=== PATIENT | male | born 1960 | race Caucasian/White ===

== ENCOUNTER 2024-12-12 11:39 | Inpatient (IN) | payer MEDICARE, SELFPAY ==
[2024-12-12] VITALS (8 sets, daily range): BP systolic 105–154; BP diastolic 64–105; PULSE 87–120; RESP 12–88; TEMP 35.6–37.2; O2SAT 95–100; BMI 20.6; BMI 19.7
--- NOTE | 2024-12-12 11:43 | EKG_ITS ---
[facility] Test Date: 2024-12-12 Pat Name: MAUREEN CAPUTO Department: Room: - Gender: Male Communications Senior Associate: : 1960 Requested By: Zora Almanza Order Number: [id number] Reading MD: Zora Almanza Measurements Intervals [place] Rate: 111 P: 46 HI: 153 QRS: 36 QRSD: 87 T: 32 QT: 310 QTc: 423 Interpretive Statements SINUS TACHYCARDIA LOW QRS VOLTAGE IN EXTREMITY LEADS [QRS DEFLECTION < 0.5 mV IN LIMB LEADS] NONSPECIFIC ST & T-WAVE ABNORMALITY ABNORMAL RHYTHM ECG No previous ECG available for comparison /store/S0/[id number].pdf
--- NOTE | 2024-12-12 11:44 | PD.EDSOB ---
ED SOB =RME/HPI General Chief Complaint: Shortness of Breath/Dyspnea Stated Complaint: STAT Time Seen by Provider: 12/12/24 11:43 Arrival date/time: 12/12/24 11:39 RME / HPI RME / HPI Narrative: 64 year old male with history of breast cancer with metastasis to brain and bones, undergoing chemotherapy, BPH with LUTS, s/p prostatic uretheral lift presents to the ED BIBA from home for altered mental status today. Per medics, on scene reported the patient at baseline is GCS of 14, conversive, awake, alert. However, noted at about 10:45 AM today the patient was not responsive. Was last known well at 10:30 AM today. Per medics, on scene patient is minimally responsive to pain, GCS of 4, prehospital BS 155, HR 120s. Related Data Home Medications ?Medication ?Instructions ?Recorded ?Confirmed Benazepril Hcl ##0 04/25/15 10/31/21 Cyclobenzaprine * (FLEXERIL *) 5 mg PO TID #0 tabs 04/25/15 10/31/21 Hydrocodone/Acetaminophen * (NORCO 1 tab PO Q4H PRN #0 tabs 04/25/15 10/31/21 10/325 *) hydrochlorothiazide 12.5 mg 12.5 mg PO QAM High Blood Pressure 04/25/15 10/31/21 capsule (Microzide) #0 caps topiramate 50 mg tablet (Topamax) 50 mg PO QDAY #0 tabs 02/22/17 10/31/21 tamoxifen 20 mg tablet 20 mg PO QDAY 12/18/19 10/31/21 pregabalin 25 mg capsule (Lyrica) 25 mg PO BID 11/08/20 10/31/21 Allergies Allergy/AdvReac Type Severity Reaction Status Date / Time No Known Allergies Allergy Verified 12/12/24 14:15 Review of Systems Review of Systems ROS Unobtainable: unobtainable due to mental status Past Medical History Past Medical History REPRODUCTIVE: Positive Breast Cancer OTHER HISTORY: Positive Chemotherapy and Breast Cancer Social History SMOKING STATUS: Unknown if ever smoked ED Exam Narrative Physical exam: Constitutional: Altered, lethargic HEENT: NC, AT, pupils are 5mm and reactive bilaterally Neck: Supple CV: RRR, no m/r/g Lungs: spontaneous respirations, CTAB, no w/r/r, no respiratory distress. Abd: Soft, NT, no HSM noted to palpation Extremities: No deformities, no edema noted Neuro: Altered, lethargic, appears to move upper extremities spontaneously Skin: Warm, dry, intact Course Course Course Narrative: 1300h: On chest xray, there is significant pneumonia, antibiotics ordered, patient will most likely be admitted. 1430h: The at bedside reports that the patient has had a low-grade fever for the past few days, along with decreased activity, which worsened this morning. The patient has pneumonia on CXR and a brain CT showed no acute findings. Known history of metastatic breast cancer to the bones and brain. Given the change in mentation, likely delirium with the PNA. Abx were given and plan admit. 1515h: I spoke with hospitalist team B regarding admission. Quality Measures none Orders Category Date Time Status Bedside COVID-19 Antigen Test NOW Care 12/12/24 15:20 Active COVID-19 Screening Questionnaire NOW Care 12/12/24 15:13 Active Sales Product Specialist STAT Care 12/12/24 11:43 Active Continuous Pulse Oximetry STAT Care 12/12/24 11:43 Completed Decision to Admit X1 Care 12/12/24 15:13 Completed EKG (ED ONLY) *Do not use* NOW Care 12/12/24 11:43 Completed In and Out Catheter X1PRN Care 12/12/24 11:43 Completed Insert IV NOW Care 12/12/24 11:43 Active NPO STAT Care 12/12/24 11:43 Active Strict Intake and Output Routine Care 12/12/24 11:[address] head/brain wo con Stat Exams 12/12/24 11:43 Completed EKG (ED Only) Stat Exams 12/12/24 11:43 Draft XR chest 1V SEPSIS PROTOCOL Stat Exams 12/12/24 11:45 Completed ABG [Arterial Blood Gas] Stat Lab 12/12/24 15:50 Completed Ammonia Stat Lab 12/12/24 13:18 Completed B-Type Natriuretic Peptide Stat Lab 12/12/24 11:53 Completed Blood Culture (Lab) Stat Lab 12/12/24 13:18 Received CBC Stat Lab 12/12/24 11:53 Completed Comprehensive Metabolic Panel Stat Lab 12/12/24 13:18 Completed Drug Screen,Urine Stat Lab 12/12/24 11:55 Completed Influenza A & B Rapid Panel Stat Lab 12/12/24 15:27 Completed LDH (Lactate Dehydrogenase) Stat Lab 12/12/24 13:18 Completed Lactate (Lactic Acid) Stat Lab 12/12/24 11:53 Completed Lipase Stat Lab 12/12/24 13:18 Completed Magnesium Stat Lab 12/12/24 13:18 Completed Partial Thromboplastin Time Stat Lab 12/12/24 13:18 Completed Phosphorous Stat Lab 12/12/24 13:18 Completed Procalcitonin Stat Lab 12/12/24 13:18 Completed Prothrombin Time with INR Stat Lab 12/12/24 13:18 Completed Urinalysis, C/S if Indicated Stat Lab 12/12/24 11:50 Completed Azithromycin Inj [Zithromax Inj] 500 mg Med 12/12/24 13:02 Discontinued Sodium Chloride 0.9% 250 ml [Ns] 250 ml IV X1 Ringers Lactated 1000 ml [Lactated Ringers] 1,000 ml Med 12/12/24 13:03 Discontinued IV 500 mls/hr Ringers Lactated 1000 ml [Lactated Ringers] 1,000 ml Med 12/12/24 11:47 Discontinued IV 999 mls/hr cefTRIAXone/D5w 1gm IV premix [Rocephin/D5w 1gm IV Med 12/12/24 13:02 Discontinued premix] 1 gm in 50 ml IV X1 Oxygen Delivery NOW RT 12/12/24 11:43 Active Vital Signs Vital signs: Vital Signs Temperature 98.9 F 12/12/24 11:40 Pulse Rate 117 H 12/12/24 11:40 Respiratory Rate 18 12/12/24 11:40 Blood Pressure 105/64 12/12/24 11:40 Pulse Oximetry (%) 98 12/12/24 11:40 Oxygen Delivery Method Oxy Mask 12/12/24 11:40 Oxygen Flow Rate 4 12/12/24 11:40 Shortness of Breath / Dyspnea MDM Narrative MDM Narrative:: Dalila Lopez am scribing for and in the presence of Dr. Koehler. Patient data External records reviewed:: [facility] previous records and EMS form Clinical information provided by:: EMS Social determinants that could affect healthcare access:: none Patient has the following chronic illnesses:: breast cancer with metastasis to brain and bones, undergoing chemotherapy, BPH with LUTS, s/p prostatic uretheral lift How is presenting disease/condition affected by chronic disease/condition?: exacerbated by Evaluation data The following diagnostics were reviewed and interpreted by me:: lab results, radiology exam(s) and EKG tracing(s) (EKG @ 11:49 AM. Sinus tachycardia, rate 111, no acute ischemic changes, no STEMI. ) Lab and/or radiology exams considered but not ordered:: None Interpretation Summary: Ordering Physician: Zora Koehler MD Date of Service: 12/12/24 Procedure(s): CT head/brain wo con Accession Number(s): [id number] cc: James Jay MD; Zora Koehler MD~ Examination: CT brain head without contrast. 2-D sagittal coronal reconstructions Date and time of exam:December 12, 2024, 1205 hours INDICATIONS: Altered mental status today CTDI: vol (mGy):48 DLP: (mGycm):1054 Technique: Multiple CT axial sections of the brain have been obtained, 5 mm slice thickness. Contrast has not been administered. 2-D sagittal, coronal reconstructions have been obtained Low dose protocols were performed. One or more of the following dose reduction techniques were used; automated exposure control, adjustment of the mA and/or KV according to patient size, use of iterative reconstruction technique. Findings: No significant ventricular enlargement. Intra-axial or extra-axial hemorrhage density is not seen. No mass effect or midline shift Basal cisterns are not remarkable. Fourth ventricle is midline. Cranial vault intact. Acute right mastoiditis Right otitis media Impression: Negative for acute hemorrhage, mass effect or midline shift Acute right mastoiditis Right otitis media Advise clinical correlation follow-up accordingly Dictated By: James Jay MD Signed By: <Electronically signed by James Jay MD in OV> 12/12/24 1243 Ordering Physician: Zora Koehler MD Date of Service: 12/12/24 Procedure(s): XR chest 1V SEPSIS PROTOCOL Accession Number(s): [id number] cc: James Jay MD; Zora Koehler MD~ Examination: AP chest single view Technique one AP portable upright chest single view Date and time: December 12, 2024, 11:54 AM INDICATIONS: Sepsis alert today. FINDINGS: Fairly diffuse right lung pneumonia Left base pneumonia Mild elevation left hemidiaphragm. Left internal Port-A-Cath tip right atrium Normal heart size Prominent osteopenia with old appearing fracture deformity left humeral neck IMPRESSION: Significant bilateral pneumonia Dictated By: James Jay MD Signed By: <Electronically signed by James Jay MD in OV> 12/12/24 1204 Medications / Prescriptions Medications or Prescriptions considered but not ordered:: None Medication administrations:: Medication Administration History Acetaminophen (Acetaminophen 325 Mg Tablet) 650 mg PO Q6H PRN PRN Reason: Fever >101.5 and pain 1-3 Stop: 01/11/25 16:21 Hydrocodone Bitart/Acetaminophen (Hydrocodone/Apap 10/325 Tab) 1 tab PO Q4H PRN PRN Reason: PAIN SCALE 4-6 (Moderate Stop: 12/17/24 16:21 Lactated Ringer's (Lactated Ringers) 1,000 mls @ 75 mls/hr IV .[id number] ONE Stop: 12/13/24 06:41 Morphine Sulfate (Morphine Sulf Inj 4 Mg/Ml Vial) 2.5 mg IVP Q6H DEBBI Stop: 12/13/24 08:01 Ondansetron HCl (Ondansetron Inj 2 Mg/Ml Inj 2 Ml) 4 mg IVP Q6H PRN; Protocol PRN Reason: NAUSEA OR VOMITING Stop: 01/11/25 16:21 Discontinued Medications Lactated Ringer's (Lactated Ringers) 1,000 mls @ 999 mls/hr IV .Q1H1M ONE Stop: 12/12/24 12:47 Last Infusion: 12/12/24 14:07 Dose: Infused Documented By: Admin: 12/12/24 12:35 Dose: 999 mls/hr Documented By: VG Ceftriaxone Sodium/Dextrose (Rocephin/D5w 1gm Iv Premix) 1 gm in 50 mls @ 100 mls/hr IV X1 ONE Stop: 12/12/24 13:31 Last Infusion: 12/12/24 15:03 Dose: Infused Documented By: Admin: 12/12/24 14:22 Dose: 100 mls/hr Documented By: DIANNE Azithromycin 500 mg/ Sodium (Chloride) 250 mls @ 250 mls/hr IV X1 ONE Stop: 12/12/24 14:01 Last Infusion: 12/12/24 15:51 Dose: Infused Documented By: Admin: 12/12/24 14:33 Dose: 250 mls/hr Documented By: DIANNE Lactated Ringer's (Lactated Ringers) 1,000 mls @ 500 mls/hr IV .Q2H ONE Stop: 12/12/24 15:02 Last Admin: 12/12/24 14:06 Dose: 500 mls/hr Documented By: DIANNE See above Consultations Consultation(s) initiated? (list below): Yes Consultation #1 (Physician, Specialty, Details): See course Diagnosis Shortness of Breath Differential Diagnosis: acute exacerbation of chronic obstructive airways disease, congestive heart failure, community acquired pneumonia and asthma with exacerbation Most likely diagnosis given after review of the tests above:: Altered mental status Pneumonia Admission Indicated Admission indicated?: indicated Admission Request Was there a request for admission?: Yes Admission Attestation Admission request attestation: Discussed case with [] from Hospitalist service regarding admission. Discussed patients ED course, exam findings, labs, and radiology results. The Hospitalist [agrees,declines] to accept the patient for admission. Disposition Plan Disposition Plan: Admit Discharge Plan Plan Patient Disposition: Admit Acute Care w/in Hospital Problem List Clinical Impression: Altered mental status, Pneumonia
--- NOTE | 2024-12-12 12:00 | PC.NURSE ---
PT TAKEN TO CT.
[2024-12-12 12:17] LABS: Collection Type, Urine Clean Catch
[2024-12-12 12:18] LABS: Basophils # (Auto) 0.1 Thou/mm3 (0.0-0.2); Basophils % (Auto) 1 % (0-2.5); Eosinophils # (Auto) 0.1 Thou/mm3 (0.0-0.5); Eosinophils % (Auto) 1 % (0-10); Hematocrit 36.6 % (41.0-53.0); Hemoglobin 11.7 g/dL (13.5-16.0); Immature Granulocytes Auto 0.13 Thou/mm3 (0.00-0.00); Lactate (Lactic Acid) 1.2 mMol/L (0.4-2.0); Lymphocytes # (Auto) 0.6 Thou/mm3 (1.0-4.8); Lymphocytes % (Auto) 6 % (10-50); Mean Corpuscular HGB Conc 32.0 g/dl (31.0-37.0); Mean Corpuscular Hemoglobin 33.7 pg (25.0-35.0); Mean Corpuscular Volume 106 fL (80-100); Monocytes # (Auto) 0.5 Thou/mm3 (0.0-0.8); Monocytes % (Auto) 5 % (0-12); Neutrophils # (Auto) 8.7 Thou/mm3 (1.8-7.7); Neutrophils % (Auto) 87 % (37-80); Nucleated Red Blood Cell # 0.00 Thou/mm3 (0.00-0.00); Nucleated Red Blood Cell % 0 /100 WBC (0); Platelet Count 229 Thou/mm3 (140-440); RDW Standard Deviation 68.0 fL (35.1-43.9); Red Blood Count 3.47 Miln/mm3 (4.50-5.90); White Blood Count 10.1 Thou/mm3 (3.8-10.6)
[2024-12-12 12:24] LABS: Bilirubin,Urine Negative (Negative); Blood,Urine Negative (Negative); Clarity,Urine Clear (Clear/Hazy); Color,Urine Yellow (Lt Yel-Yel); Culture Indicated,Urine Not Indicated; Glucose, Urine Negative (Negative); Ketones,Urine Negative (Negative); Leukocyte Esterase,Urine Negative (Negative); Nitrite,Urine Negative (Negative); PH,Urine 6.0 (5.0-7.0); Protein,Urine Negative (Neg - Trace); RBC,Urine < 1 /hpf (0-3); Specific Gravity,Urine 1.015 (1.001-1.035); Squamous Epithelial Cell,Urine < 1 /hpf (0-5); Urobilinogen,Urine Negative mg/dL (0.0-1.0); WBC,Urine 1 /hpf (0-5)
[2024-12-12] MEDS: RINGERS LACTATED 1000 ML 1,000 ML 999 ML IV (12:35)
[2024-12-12 12:39] LABS: Amphetamine/Methamp Scrn,U Negative (Negative); Barbiturate Screen,Urine Negative (Negative); Benzodiazepines Screen,Urine Negative (Negative); Benzoylecgonine Screen, Ur Negative (Negative); Fentanyl Screen,Urine Negative (Negative); Opiate Screen,Urine Positive (Negative); THC Screen,Urine Negative (Negative)
[2024-12-12 12:40] LABS: B-Type Natriuretic Peptide 46 pg/mL (0-100)
[2024-12-12 13:43] LABS: INR 1.0 (0.9-1.3); Partial Thromboplastin Time 27.9 Seconds (22.0-36.0); Prothrombin Time 11.1 Seconds (9.0-12.2)
[2024-12-12 13:49] LABS: Ammonia < 10 uMol/L (11-32)
[2024-12-12] MEDS: RINGERS LACTATED 1000 ML 1,000 ML 500 ML IV (14:06)
[2024-12-12 14:11] LABS: Alanine Aminotransferase 13 U/L (10-49); Albumin, Serum 4.1 gm/dL (3.4-4.8); Albumin/Globulin Ratio 1.8 (1.2-2.2); Alkaline Phosphatase 78 U/L (46-116); Anion Gap 9 (7-16); Aspartate Amino Transferase 24 U/L (0-34); BUN/Creatinine Ratio 14 Ratio (12-20); Bilirubin,Total 0.2 mg/dL (0.3-1.2); Blood Urea Nitrogen 11 mg/dL (9-23); Calcium 9.1 mg/dL (8.3-10.6); Calcium (Corrected) 9.1 mg/dL (8.5-10.1); Carbon Dioxide 28.4 mMol/L (20.0-31.0); Chloride 110 mMol/L (98-107); Creatinine (Component) 0.8 mg/dL (0.6-1.3); Estimated Creatinine Clearance 88.6 mL/min (>60); Globulin 2.3 gm/dL (2.3-3.5); Glucose 136 mg/dL (74-106); LDH (Lactate Dehydrogenase) 220 U/L (120-246); Lipase 19 U/L (12-53); Magnesium 2.1 mg/dL (1.6-2.6); Osmolality,Calculated 293 (275-295); Phosphorous 3.8 mg/dL (2.4-5.1); Potassium 3.6 mMol/L (3.4-5.1); Procalcitonin 0.13 ng/ml (0.0-0.49); Sodium 147 mMol/L (136-145); Total Protein 6.4 gm/dL (5.7-8.2); eGFR > 60 See Note
[2024-12-12] MEDS: cefTRIAXone/D5w 1gm IV premix 1 GM/50 ML BAG IV (14:22)
[2024-12-12] MEDS: AZITHROMYCIN INJ 500 MG in SODIUM CHLORIDE 0.9% 250 ML 250 ML 250 MG IV (14:33)
--- NOTE | 2024-12-12 15:00 | PC.NURSE ---
at bedside. per , pt was acting his usual self yesterday, talking and walking around with walker as usual. states pt had low grade fever the past couple of days which she has been treating with advil and noted today pt was very lethargic and not very responsive this morning. states pt is followed by samantha for his stage 4 breast cancer which has metastasized to the brain and spine. updated on plan of care. verbalizes understanding.
--- NOTE | 2024-12-12 15:25 | PC.NURSE ---
residents at bedside to assess pt.
--- NOTE | 2024-12-12 15:30 | PC.NURSE ---
RT called for ordered ABG.
[2024-12-12 15:50] LABS: Influenza A Ag Negative; Influenza B Ag Negative
[2024-12-12 15:56] LABS: Base Excess -2 (-3-3); HCO3 27 mEq/L (20-26); Inspired O2, VO2 Liters 2 L/min; O2 Saturation 95 % (91-98); PCO2 61 mmHg (32.0-48.0); PO2 78 mmHg (83-108); pH, Arterial 7.25 (7.35-7.45)
[2024-12-12 16:03] LABS: Allen Test Performed/OK; Puncture Site Right Radial
--- NOTE | 2024-12-12 16:04 | PD.RESHP ---
Documentation for date of: 12/12/24 [facility] History of Present Illness History of present illness: Patient is a 64-year-old male with past medical history of right breast cancer, with metastasis to spine and brain, C diff, multiple falls (latest in September, sustained left humerus fracture), hemorrhagic stroke, 7 postsplenectomy, and sleep apnea on 2L nightly who presents from home on 12/12 for low grade fevers and altered mental status since yesterday. Patient unable to provide history due to current mental status, history provided by patient's and main senior behavioral scientist Sarahy. Patient has been having low-grade fevers since yesterday, recently had altered mental status overnight. Reports that he is hard to arouse and will wake up. Endorses decreased appetite for the past couple of months. Denies any recent sick contacts. Denies any recent nausea, vomiting, cough, diarrhea, dysuria. Denies any new medications. Otherwise patient was diagnosed with right breast cancer metastatic to spine and ribs in March 2023. Has been following very closely with [facility] had chemo and radiation last year, currently on monthly injections with oral medication. Of note, [place] [facility] [place] Was found to have a hemorrhagic stroke and fracture to left humerus. Patient was previously on Eliquis but was discontinued after discussing risks and benefits. Currently not on any blood thinners. Reports that he almost fell 5 days ago in the bathroom but patient's caught him. ED Course: -Initial vitals were 105/74, HR 117. Afebrile. O2 90% on oxy mask 4 L. -Labs significant for WBC 10.1, hemoglobin 11.7. ABG pH 7.25, pCO2 61, pO2 78, bicarb 27. Sodium 147, chloride 110, anion gap 9, creatinine 0.8. Lactic 1.2, Pro-Pete 0.13. EKG shows sinus tachycardia with no ST or T wave abnormalities. -Imaging included CT head was negative for acute hemorrhage or mass effect, however showed acute right mastoiditis and right otitis media. Chest x-ray showed bilateral pneumonia. -In the ED, patient was given azithromycin x 1, ceftriaxone x 1, LR 1 L bolus x 2 -Patient was admitted for acute encephalopathy, likely metabolic versus infectious Review of Systems Review of systems otherwise negative except what is mentioned above. Past Medical History: As above Family History: prostate cancer per review of records Social History: Remote history of smoking, quit 30-40 years ago. Denies current alcohol use, denies recreational drug use. Current Medications: pending official med rec Allergies: No known drug allergies Exam Vital Signs Temp Pulse Resp BP Pulse Ox O2 Del Method O2 Flow Rate 96.3 F L 99 12 154/87 H 95 Oxy Mask 2 12/12/24 15:00 12/12/24 15:00 12/12/24 15:00 12/12/24 15:12/12/24 15:12/12/24 15:12/12/24 15:00 Narrative Exam Physical Exam General: Awake. Lethargic. Saturating well on 4 L oxy mask. Answering to some questions appropriately when asks questions. HEENT: Normocephalic, atraumatic, mucous membranes dry. Heart: Tachycardic. Regular rate and rhythm, normal S1 and S2, no murmurs. Lungs: Decreased lung sounds bilaterally. Abdomen: Soft, nondistended, nontender, positive bowel sounds. No guarding or rebound tenderness. Neurologic: Unable to assess as patient was not responsive to commands. Only able to wiggle right foot. Extremities: No edema. Skin: No rash. Ecchymoses on bilateral upper extremities. Results: Labs 12/13/24 04:40 12/13/24 04:40 Labs: Short CBC 12/12/24 Range/Units 11:53 WBC 10.1 (3.8-10.6) Thou/mm3 Hgb 11.7 L (13.5-16.0) g/dL Hct 36.6 L (41.0-53.0) % Plt Count 229 (140-440) Thou/mm3 BMP 12/12/24 13:18 Sodium 147 H Potassium 3.6 Chloride 110 H Carbon Dioxide 28.4 BUN 11 Creatinine 0.8 Glucose 136 H Calcium 9.1 Liver Function 12/12/24 Range/Units 13:18 Total Bilirubin 0.2 L (0.3-1.2) mg/dL AST 24 (0-34) U/L ALT 13 (10-49) U/L Alkaline Phosphatase 78 (46-116) U/L Albumin 4.1 (3.4-4.8) gm/dL Urine 12/12/24 Range/Units 11:50 Urine Color Yellow (Lt Yel-Yel) Urine Clarity Clear (Clear/Hazy) Urine pH 6.0 (5.0-7.0) Ur Specific [place] 1.015 (1.001-1.035) Urine Protein Negative (Neg - Trace) Urine Glucose (UA) Negative (Negative) ABG Interpretation ABG results: 12/12/24 15:50 ABG pH 7.25 L ABG pCO2 61 H ABG pO2 78 L ABG HCO3 27 H ABG O2 Saturation 95 ABG Base Excess -2 Quality Measures Quality Measures VTE prophylaxis Advance care planning discussed with:: significant other Medications Home Medications and Allergies Home Medications ?Medication ?Instructions ?Recorded ?Confirmed ?Type Benazepril Hcl 10 mg PO QDAY ##0 04/25/15 12/12/24 History Cyclobenzaprine * (FLEXERIL *) 10 mg PO BID #0 tabs 04/25/15 12/12/24 History Hydrocodone/Acetaminophen * (NORCO 1 tab PO Q4H PRN pain #0 tabs 04/25/15 12/12/24 History 10/325 *) topiramate 50 mg tablet (Topamax) 25 mg PO Q12H #0 tabs 02/22/17 12/12/24 History pregabalin 25 mg capsule (Lyrica) 100 mg PO BID 11/08/20 12/12/24 History alpelisib 300 mg/day (150 mg x 2) 300 mg PO QDAY 12/12/24 12/12/24 History tablet (Piqray) ascorbic acid (vitamin C) 500 mg 500 mg PO QDAY 12/12/24 12/12/24 History tablet cholecalciferol (vitamin D3) 125 125 mcg PO QDAY 12/12/24 12/12/24 History mcg (5,000 unit) tablet (Vitamin D3) diltiazem HCl 120 mg 120 mg PO QDAY 12/12/24 12/12/24 History capsule,extended release 24 hr, controlled (DILT-XR) famotidine 20 mg tablet 20 mg PO HS 12/12/24 12/12/24 History ferrous sulfate 324 mg (65 mg 324 mg PO QDAY 12/12/24 12/12/24 History iron) tablet,delayed release memantine 10 mg tablet 10 mg PO BID 12/12/24 12/12/24 History midodrine 10 mg tablet 10 mg PO TID 12/12/24 12/12/24 History morphine 30 mg tablet,extended 30 mg PO QDAY 12/12/24 12/12/24 History release rxlbeynu-qyihhdiv-hrpyb acid 400 1 tab PO QDAY 12/12/24 12/12/24 History mcg-vit K 20 mcg-lycop 300 mcg tablet (One-A-Day Men's Multivitamin) ondansetron 8 mg disintegrating 8 mg PO Q8H 12/12/24 12/12/24 History tablet ondansetron 8 mg disintegrating 8 mg PO Q8H PRN nausea and vomiting 12/12/24 12/12/24 History tablet pantoprazole 40 mg tablet,delayed 40 mg PO QDAY 12/12/24 12/12/24 History release polyethylene glycol 3350 17 17 g PO QDAY 12/12/24 12/12/24 History gram/dose oral powder (ClearLax) vitamin E 400 unit tablet 400 unit PO QDAY 12/12/24 12/12/24 History Allergies Allergy/AdvReac Type Severity Reaction Status Date / Time No Known Allergies Allergy Verified 12/12/24 14:15 Visit Medications Discontinued Medications Lactated Ringer's (Lactated Ringers) 1,000 mls @ 999 mls/hr IV .Q1H1M ONE Stop: 12/12/24 12:47 Last Infusion: 12/12/24 14:07 Dose: Infused Ceftriaxone Sodium/Dextrose (Rocephin/D5w 1gm Iv Premix) 1 gm in 50 mls @ 100 mls/hr IV X1 ONE Stop: 12/12/24 13:31 Last Infusion: 12/12/24 15:03 Dose: Infused Azithromycin 500 mg/ Sodium (Chloride) 250 mls @ 250 mls/hr IV X1 ONE Stop: 12/12/24 14:01 Last Infusion: 12/12/24 15:51 Dose: Infused Lactated Ringer's (Lactated Ringers) 1,000 mls @ 500 mls/hr IV .Q2H ONE Stop: 12/12/24 15:02 Last Admin: 12/12/24 14:06 Dose: 500 mls/hr Assessment & Plan Plan Patient is a 64-year-old male with past medical history of right breast cancer, with metastasis to spine and brain, C diff, multiple falls (latest in September, sustained left humerus fracture), hemorrhagic stroke, status post splenectomy, and sleep apnea on 2L nightly who presents from home on 12/12 for low grade fevers and altered mental status since yesterday. Admitted for metabolic versus infectious acute encephalopathy. #Community acquired pneumonia, likely 2/2 to gram negative and/or aneroboc bacteria #Acute encephalopathy, metabolic versus infectious #Acute mastoiditis, right #otitis media, right Per 's history, patient has had decreased appetite over the past couple weeks. Denies any recent sick contacts. No nausea vomiting, cough, diarrhea, dysuria. Patient had low-grade fevers and lethargy for the past day. Unable to assess mental status as patient was not responding to most questions. On admission, WBC 10.1. Lactic and Pro-Pete within normal limits. UA was negative. Chest x-ray noted bilateral pneumonia. CT head noted acute right mastoiditis and right otitis media, negative for hemorrhage or acute changes. More likely metabolic due to decreased oral intake versus infectious. S/p azithromycin x 1 and ceftriaxone x 1 Plan: ? Blood cultures pending ? IV LR 75 mL/h ? IV Unasyn 3 g every 6 hour 12/12? ?Follow cocci and Legionella ?Neuro every 4 hours ?N.p.o., pending bedside nurse swallow eval ?Consider consulting [employer] APPRENTICE and dietitian tomorrow #History right breast cancer with metastasis #Immunocompromised Follows with [facility]. Has metastasis to spine and brain. Status post radiation and chemotherapy. Has monthly infusions and takes oral immunosuppressive medication daily. ?Pending official med rec ?Restart oral Piqray 300 mg BID when no longer NPO ?Morphine 2.5 mg IV every 6 hours nightly ?Mays as needed ?Holding topiramate, memantine, cyclobenzaprine #History of multiple falls #Syncope #Recent left humerus fracture Multiple falls in the past, latest episode on 09/18/2024. Was discontinued from Eliquis after last fall, no IVC filter. Unknown cardiac history but home medication include diltiazem. Likely orthostatic versus weakness from malnutrition. ? [place] [facility] [place] Orthostatic vitals #Sleep apnea Was officially diagnosed with SORAYA however does not have CPAP machine. Wears 2 L oxygen at home overnight. ?CPAP overnight Health Maintenance Disposition: med tele DVT prophylaxis: SCDs GI prophylaxis: Protonix Diet: NPO, must pass swallow CODE STATUS: FULL Patient plan of care was discussed with the attending physician, Dr. Gonzales. Emily Mcqueen, PGY-1 Attending Provider Attestation/Addendum After examination of the patient and review of the clinical data I feel that this patient needs admission to the hospital for further treatment/evaluation. I have discussed and was present for the essential components of the history, physical examination, diagnosis, and treatment plan with the resident. I agree with the patient's care as documented by the resident and amended herein by me. Bryan Gonzales, DO. Although this document has been carefully reviewed, there may still be some phonetic and other typographical errors. These errors are purely grammatical due to imperfections in the software program and should not be construed in any way to compromise the substance of the patient's medical care during this visit.
[2024-12-12 17:41] LABS: Sodium 146 mMol/L (136-145)
--- NOTE | 2024-12-12 18:14 | PC.NURSE ---
Patient arrived on floor at 18:10
[2024-12-12] MEDS: RINGERS LACTATED 1000 ML 1,000 ML 75 ML IV (19:05)
[2024-12-12 20:13] LABS: Folate > 24.00 ng/mL (>5.38); Vitamin B12 442 pg/mL (211-911)
[2024-12-12 23:57] LABS: Sodium 147 mMol/L (136-145)
[2024-12-13] VITALS (10 sets, daily range): BP systolic 126–135; BP diastolic 82–92; PULSE 82–114; RESP 12–100; TEMP 36.3–36.7; O2SAT 93–100
[2024-12-13] MEDS: MORPHINE SULF INJ 4 MG/ML VIAL 2.5 MG IVP ×2 (01:46→08:56)
[2024-12-13 05:13] LABS: Basophils # (Auto) 0.0 Thou/mm3 (0.0-0.2); Basophils % (Auto) 0 % (0-2.5); Eosinophils # (Auto) 0.1 Thou/mm3 (0.0-0.5); Eosinophils % (Auto) 1 % (0-10); Hematocrit 34.1 % (41.0-53.0); Hemoglobin 10.9 g/dL (13.5-16.0); Immature Granulocytes Auto 0.07 Thou/mm3 (0.00-0.00); Lymphocytes # (Auto) 0.5 Thou/mm3 (1.0-4.8); Lymphocytes % (Auto) 5 % (10-50); Mean Corpuscular HGB Conc 32.0 g/dl (31.0-37.0); Mean Corpuscular Hemoglobin 32.7 pg (25.0-35.0); Mean Corpuscular Volume 102 fL (80-100); Monocytes # (Auto) 1.0 Thou/mm3 (0.0-0.8); Monocytes % (Auto) 12 % (0-12); Neutrophils # (Auto) 7.0 Thou/mm3 (1.8-7.7); Neutrophils % (Auto) 81 % (37-80); Nucleated Red Blood Cell # 0.00 Thou/mm3 (0.00-0.00); Nucleated Red Blood Cell % 0 /100 WBC (0); Platelet Count 220 Thou/mm3 (140-440); RDW Standard Deviation 64.7 fL (35.1-43.9); Red Blood Count 3.33 Miln/mm3 (4.50-5.90); White Blood Count 8.6 Thou/mm3 (3.8-10.6)
[2024-12-13 06:05] LABS: Alanine Aminotransferase 11 U/L (10-49); Albumin, Serum 3.7 gm/dL (3.4-4.8); Albumin/Globulin Ratio 1.9 (1.2-2.2); Alkaline Phosphatase 69 U/L (46-116); Anion Gap 11 (7-16); Aspartate Amino Transferase 21 U/L (0-34); BUN/Creatinine Ratio 13 Ratio (12-20); Bilirubin,Total 0.3 mg/dL (0.3-1.2); Blood Urea Nitrogen 9 mg/dL (9-23); Calcium 8.8 mg/dL (8.3-10.6); Calcium (Corrected) 9.0 mg/dL (8.5-10.1); Carbon Dioxide 27.2 mMol/L (20.0-31.0); Chloride 109 mMol/L (98-107); Creatinine (Component) 0.7 mg/dL (0.6-1.3); Estimated Creatinine Clearance 96.7 mL/min (>60); Globulin 2.0 gm/dL (2.3-3.5); Glucose 80 mg/dL (74-106); Magnesium 2.0 mg/dL (1.6-2.6); Osmolality,Calculated 290 (275-295); Phosphorous 2.4 mg/dL (2.4-5.1); Potassium 3.7 mMol/L (3.4-5.1); Sodium 147 mMol/L (136-145); Total Protein 5.7 gm/dL (5.7-8.2); eGFR > 60 See Note
[2024-12-13 06:13] LABS: Iron 34 mcg/dL (65-175); Percent Iron Saturation 14 % (20-55); Total Iron Binding Capacity 227 mcg/dL (250-425); Unsaturated Iron Binding 193 (225-295)
[2024-12-13] MEDS: AMPICILLIN/SULBAC INJ 3 GM in SODIUM CHLORIDE 0.9% (POP) 100 ML IV ×3 (08:56→23:34)
--- NOTE | 2024-12-13 09:41 | PC.SS ---
Follow up note: On IV antibiotic.
[2024-12-13 11:50] LABS: Cocci Serology, IgM Negative (Negative)
[2024-12-13] MEDS: DEXTROSE 5%-WATER 1,000 ML 75 ML IV (11:52)
[2024-12-13 13:28] LABS: Ammonia 33 uMol/L (11-32)
--- NOTE | 2024-12-13 13:58 | ESPR_ITS ---
<Statement entered by Svetlana Guillaume MD - 12/22/24 08:17> I reviewed above note and agree with findings and plans. I have also personally examined the patient with medicine team and went over assessment and plan with medical team including internal wholesaler and resident physician. <Statement entered by Fadi Arceo MD - 12/13/24 15:42> Patient seen and assessed in hospital bed is oriented x 1 to person but not to place or purpose at this time. At this time etiology of acute encephalopathy remains multifactorial with likely metabolic component with hypernatremia, underlying dementia and possibly secondary to infection with acute right mastoiditis, right otitis media and bilateral pneumonia. Will continue IV antibiotic and IV fluid resuscitation and monitor sodium levels. If patient's mental status does not improve by 12/14, will consider ordering brain MRI to look for secondary causes versus PREDICTIVE MAINTENANCE TECHNICIAN dysfunction. I have personally seen and examined the patient. I agree with the resident's assessment and plan as documented below. Fadi Arceo DO PGY-2 Internal Medicine - [facility] Documentation for date of: 12/13/24 Subjective Subjective Interval history: Patient seen at bedside. No acute overnight events. Patient continues to be confused. No complaints of nausea/vomiting, abdo pain, SOB, chest pain. Exam Vital Signs Temp Pulse Resp BP Pulse Ox O2 Del Method O2 Flow Rate 98.1 F 114 H 18 126/92 H 99 Room Air 12 12/13/24 12:00 12/13/24 12:00 12/13/24 12:00 12/13/24 12:00 12/13/24 12:00 12/13/24 12:00 12/13/24 00:10 Narrative Exam GEN: Awake. Lethargic. Saturating well on RA. Answering to some questions appropriately. HEENT: Normocephalic, atraumatic, mucous membranes dry. CVS: Tachycardic. Regular rate and rhythm, normal S1 and S2, no murmurs. RESP: Decreased lung sounds bilaterally. No wheezes or crackles. GI: Soft, nondistended, nontender, positive bowel sounds. No guarding or rebound tenderness. NEURO: A&O x [address] or time. Skin: No rash. Decubitus ulcers on L elbow and Left heel. Objective Labs 12/13/24 04:40 12/13/24 04:40 Labs: Laboratory Results - last 24 hr 12/12/24 12/12/24 12/12/24 13:18 15:27 15:50 WBC RBC Hgb Hct MCV MCH MCHC RDW Std Deviation Plt Count Neut % (Auto) Lymph % (Auto) [place] % (Auto) Eos % (Auto) Baso % (Auto) Neut # (Auto) Lymph # (Auto) [place] # (Auto) Eos # (Auto) Baso # (Auto) Immature Gran # (Auto) Absolute Nucleated RBC Immature Gran % Nucleated RBC % Puncture Site Right Radial ABG pH 7.25 L ABG pCO2 61 H ABG pO2 78 L ABG HCO3 27 H ABG O2 Saturation 95 ABG Base Excess -2 Oxygen Liter Flow 2 Sodium 147 H Potassium 3.6 Chloride 110 H Carbon Dioxide 28.4 Anion Gap 9 BUN 11 Creatinine 0.8 Estim Creat Clear Calc 88.6 eGFR > 60 BUN/Creatinine Ratio 14 Glucose 136 H Calculated Osmolality 293 Calcium 9.1 Corrected Calcium 9.1 Phosphorus 3.8 Magnesium 2.1 Iron TIBC Iron Saturation Unsat Iron Binding Total Bilirubin 0.2 L AST 24 ALT 13 Alkaline Phosphatase 78 Ammonia Lactate Dehydrogenase 220 Total Protein 6.4 Albumin 4.1 Globulin 2.3 Albumin/Globulin Ratio 1.8 Lipase 19 Vitamin B12 442 Folate > 24.00 Procalcitonin 0.13 Coccidioides IgM Ab Influenza A (Rapid) Negative Influenza B (Rapid) Negative 12/12/24 12/12/24 12/13/24 17:05 23:35 04:40 WBC 8.6 RBC 3.33 L Hgb 10.9 L Hct 34.1 L MCV 102 H MCH 32.7 MCHC 32.0 RDW Std Deviation 64.7 H Plt Count 220 Neut % (Auto) 81 H Lymph % (Auto) 5 L [place] % (Auto) 12 Eos % (Auto) 1 Baso % (Auto) 0 Neut # (Auto) 7.0 Lymph # (Auto) 0.5 L [place] # (Auto) 1.0 H Eos # (Auto) 0.1 Baso # (Auto) 0.0 Immature Gran # (Auto) 0.07 H Absolute Nucleated RBC 0.00 Immature Gran % 1 H Nucleated RBC % 0 Puncture Site ABG pH ABG pCO2 ABG pO2 ABG HCO3 ABG O2 Saturation ABG Base Excess Oxygen Liter Flow Sodium 146 H 147 H 147 H Potassium 3.7 Chloride 109 H Carbon Dioxide 27.2 Anion Gap 11 BUN 9 Creatinine 0.7 Estim Creat Clear Calc 96.7 eGFR > 60 BUN/Creatinine Ratio 13 Glucose 80 D Calculated Osmolality 290 Calcium 8.8 Corrected Calcium 9.0 Phosphorus 2.4 Magnesium 2.0 Iron 34 L TIBC 227 L Iron Saturation 14 L Unsat Iron Binding 193 L Total Bilirubin 0.3 AST 21 ALT 11 Alkaline Phosphatase 69 Ammonia Lactate Dehydrogenase Total Protein 5.7 Albumin 3.7 Globulin 2.0 L Albumin/Globulin Ratio 1.9 Lipase Vitamin B12 Folate Procalcitonin Coccidioides IgM Ab Negative Influenza A (Rapid) Influenza B (Rapid) 12/13/24 12:50 WBC RBC Hgb Hct MCV MCH MCHC RDW Std Deviation Plt Count Neut % (Auto) Lymph % (Auto) [place] % (Auto) Eos % (Auto) Baso % (Auto) Neut # (Auto) Lymph # (Auto) [place] # (Auto) Eos # (Auto) Baso # (Auto) Immature Gran # (Auto) Absolute Nucleated RBC Immature Gran % Nucleated RBC % Puncture Site ABG pH ABG pCO2 ABG pO2 ABG HCO3 ABG O2 Saturation ABG Base Excess Oxygen Liter Flow Sodium Potassium Chloride Carbon Dioxide Anion Gap BUN Creatinine Estim Creat Clear Calc eGFR BUN/Creatinine Ratio Glucose Calculated Osmolality Calcium Corrected Calcium Phosphorus Magnesium Iron TIBC Iron Saturation Unsat Iron Binding Total Bilirubin AST ALT Alkaline Phosphatase Ammonia 33 H Lactate Dehydrogenase Total Protein Albumin Globulin Albumin/Globulin Ratio Lipase Vitamin B12 Folate Procalcitonin Coccidioides IgM Ab Influenza A (Rapid) Influenza B (Rapid) ABG Interpretation ABG results: 12/12/24 15:50 ABG pH 7.25 L ABG pCO2 61 H ABG pO2 78 L ABG HCO3 27 H ABG O2 Saturation 95 ABG Base Excess -2 Quality Measures Quality Measures VTE prophylaxis Advance care planning discussed with:: patient Assessment & Plan Assessment Current Active Medications: Generic Name Dose Route Start Last Admin Trade Name Freq PRN Reason Stop Dose Admin Acetaminophen 650 mg 12/12/24 16:22 Acetaminophen 325 Mg Tablet PO 01/11/25 16:21 Q6H PRN Fever >101.5 and pain 1-3 Hydrocodone Bitart/Acetaminophen 1 tab 12/12/24 16:22 Hydrocodone/Apap 10/325 Tab PO 12/17/24 16:21 Q4H PRN PAIN SCALE 4-6 (Moderate Ampicillin Sodium/Sulbactam 100 mls @ 200 mls/hr 12/13/24 09:00 12/13/24 10:05 Sodium 3 gm/ Sodium Chloride IV 12/20/24 08:59 Not Given Q6HR DEBBI Dextrose 1,000 mls @ 75 mls/hr 12/13/24 11:30 12/13/24 11:52 D5w IV 12/14/24 00:49 75 mls/hr .[id number] DEBBI Administration Ondansetron HCl 4 mg 12/12/24 16:22 Ondansetron Inj 2 Mg/Ml Inj 2 Ml IVP 01/11/25 16:21 Q6H PRN NAUSEA OR VOMITING Protocol Pantoprazole Sodium 40 mg 12/12/24 18:00 12/13/24 08:57 Pantoprazole Inj 40 Mg Vial IVP 01/11/25 17:59 40 mg QDAY DEBBI Administration Plan Assessment: 64-year-old male with PHx of right breast cancer, with mets to spine and brain, multiple falls (latest in September, sustained left humerus fracture), hemorrhagic stroke, and sleep apnea on 2L nightly who presents from home on 12/12 for low grade fevers and altered mental status x 1day. Admitted for metabolic versus infectious acute encephalopathy. #Acute encephalopathy Multifactorial: underlying dementia, hypernatremia, R mastoditis, R acute otitis media, bilat PNA On admission, WBC 10.1. Lactic and Pro-Pete within normal limits. UA was negative. Chest x-ray noted bilateral pneumonia. CT head noted acute right mastoiditis and right otitis media, negative for hemorrhage or acute changes. S/p azithromycin x 1 and ceftriaxone x 1 Passed swallow screen ABG - WNL Ammonia - 33 (mild elevation) Plan: - If still confused by tomorrow will order brain MRI to r/o PREDICTIVE MAINTENANCE TECHNICIAN dysfunction ? Blood cultures pending ? IV D5W 75 mL/h 1 bag ? IV Unasyn 3 g every 6 hour 12/12? ?Follow cocci and Legionella ?Neuro every 4 hours ?Dysphagia 3 diet #History right breast cancer with metastasis Follows with [facility]. Has metastasis to spine and brain. Status post radiation and chemotherapy. Has monthly infusions and takes oral immunosuppressive medication daily. Plan ?Restart oral Piqray 300 mg BID when no longer NPO ?Morphine 2.5 mg IV every 6 hours nightly ?[place] as needed ?Holding topiramate, memantine, cyclobenzaprine #History of multiple falls #Syncope #Recent left humerus fracture Multiple falls in the past, latest episode on 09/18/2024. Was discontinued from Eliquis after last fall, no IVC filter. Unknown cardiac history but home medication include diltiazem. Likely orthostatic versus weakness from malnutrition. Plan ? Obtain previous records for workup at [facility] ? Orthostatic vitals #Sleep apnea Was officially diagnosed with SORAYA however does not have CPAP machine. Uses 2 L oxygen at home overnight. Plan ?CPAP overnight Health Maintenance Disposition: med tele DVT prophylaxis: SCDs GI prophylaxis: Protonix Diet: dysphagia 3 diet CODE STATUS: FULL Case discussed with my attending Dr. Guillaume , and senior resident, Dr. Marielos Wynen MD PGY-1
[2024-12-13 14:18] LABS: Base Excess 1 (-3-3); HCO3 25 mEq/L (20-26); Inspired Oxygen, FIO2 21 %; O2 Saturation 98 % (91-98); PCO2 34 mmHg (32.0-48.0); PO2 84 mmHg (83-108); pH, Arterial 7.46 (7.35-7.45)
[2024-12-13 14:20] LABS: Allen Test Performed/OK; Puncture Site Right Radial
[2024-12-13 15:04] LABS: Base Excess, Venous 0 (-3-3); O2 Saturation, Venous 84 % (96-97); PCO2, Venous 42 mmHg (36-56); PO2, Venous 48 mmHg (15-58); pH, Venous 7.38 (7.33-7.66)
--- NOTE | 2024-12-13 15:14 | PC.SS ---
SS spoke to by phone regarding patient's d/c plan. Pt is confused. Wfie states pt is alert/oriented at home (pt being confused is not his baseline). Pt was admitted for AMS. Pt confirmed demographic and contact information is correct on facesheet. Pt resides with . Pt ambulates using a 4 wheel with seat, rollator walker. Pt is ok with all ADLs. helps care for pt at home. states pt utilizes nocturnal O2 from [facility]. states she is patient's medical decision maker if he is unable. SS provided verbal d/c options for d/c to home or SNF. 's choice is for pt to return home upon d/c. states patient's Director Supply is Dr. Stephen and pt also follows Dr. Herron from [facility] in [place]. Pt followed up with PCP 1 month ago. Pt utilizes [facility]. D/C plan: Return home Next of Kin: , Sarahy Lazo, phone# [phone] PCP: Dr. Adelfo Lake from [facility] Address: Correct on facesheet
[2024-12-14] VITALS (13 sets, daily range): BP systolic 118–157; BP diastolic 64–98; PULSE 72–105; RESP 16–97; TEMP 36.1–37.1; O2SAT 94–100; BMI 19.6; BMI 12.0
--- NOTE | 2024-12-14 | XR_ITS ---
Examination: MRI of brain without intravenous contrast. MRI brain with intravenous contrast. Date and time of exam:December 14, 2024, 1727 hrs. Indications: Altered mental status beginning 12/12/2024, clinical diagnosis cerebral metastasis Technique: Multiple axial and sagittal images of the brain to been obtained. Siemens high-resolution 1.52 Anna short bore scanner utilized. Sagittal sections, T1 weighted images, TR 500, TE 14, are performed. Axial sections proton-density and T2-weighted images have been obtained. Inversion recovery axial images, TR 9260, TE 111, TR 2500. Diffusion weighted images, axial sections, TR 4800, TE 128, B value 1000. Axial sections, ADC map, TR 4800, TE 128. Axial and coronal images were also obtained post 13 cc gadolinium administered intravenously. Findings:: Enlargement of the sella turcica is not present. The optic chiasm and infundibular stalk are not remarkable. There is no localized enlargement of the medulla or ashok. Fourth ventricle and cerebellar tonsils appear normal in position. No subacute area of hemorrhage density is seen. Fourth ventricle is midline. Mass in the cerebellopontine angle region is not evident. 7th and 8th nerve complexes exhibit symmetry Globes are symmetrical Orbital musculature including medial lateral rectus muscles do not exhibit abnormality Increased white matter signal is moderate Effacement of the cortical sulcal markings is not identified. Mass effect upon the ventricular system is not identified. Diffusion-weighted images demonstrate no focus of restricted diffusion Contrast images are significantly degraded by patient motion Impression: The study is significantly degraded by patient motion Negative for acute hemorrhage mass effect or midline shift No acute infarct Contrast images in particular are degraded by patient motion but no definite enhancing cerebellar or cerebral lesions
[2024-12-14 05:33] LABS: Basophils # (Auto) 0.0 Thou/mm3 (0.0-0.2); Basophils % (Auto) 0 % (0-2.5); Eosinophils # (Auto) 0.0 Thou/mm3 (0.0-0.5); Eosinophils % (Auto) 0 % (0-10); Hematocrit 33.1 % (41.0-53.0); Hemoglobin 11.0 g/dL (13.5-16.0); Immature Granulocytes Auto 0.04 Thou/mm3 (0.00-0.00); Lymphocytes # (Auto) 0.4 Thou/mm3 (1.0-4.8); Lymphocytes % (Auto) 4 % (10-50); Mean Corpuscular HGB Conc 33.2 g/dl (31.0-37.0); Mean Corpuscular Hemoglobin 32.9 pg (25.0-35.0); Mean Corpuscular Volume 99 fL (80-100); Monocytes # (Auto) 1.1 Thou/mm3 (0.0-0.8); Monocytes % (Auto) 12 % (0-12); Neutrophils # (Auto) 7.7 Thou/mm3 (1.8-7.7); Neutrophils % (Auto) 84 % (37-80); Nucleated Red Blood Cell # 0.00 Thou/mm3 (0.00-0.00); Nucleated Red Blood Cell % 0 /100 WBC (0); Platelet Count 204 Thou/mm3 (140-440); RDW Standard Deviation 61.1 fL (35.1-43.9); Red Blood Count 3.34 Miln/mm3 (4.50-5.90); White Blood Count 9.2 Thou/mm3 (3.8-10.6)
[2024-12-14 06:02] LABS: Alanine Aminotransferase 9 U/L (10-49); Albumin, Serum 3.5 gm/dL (3.4-4.8); Albumin/Globulin Ratio 1.8 (1.2-2.2); Alkaline Phosphatase 67 U/L (46-116); Anion Gap 12 (7-16); Aspartate Amino Transferase 20 U/L (0-34); BUN/Creatinine Ratio 12 Ratio (12-20); Bilirubin,Total 0.5 mg/dL (0.3-1.2); Blood Urea Nitrogen 6 mg/dL (9-23); Calcium 8.1 mg/dL (8.3-10.6); Calcium (Corrected) 8.5 mg/dL (8.5-10.1); Carbon Dioxide 26.8 mMol/L (20.0-31.0); Chloride 106 mMol/L (98-107); Creatinine (Component) 0.5 mg/dL (0.6-1.3); Estimated Creatinine Clearance 135.4 mL/min (>60); Globulin 2.0 gm/dL (2.3-3.5); Glucose 95 mg/dL (74-106); Osmolality,Calculated 286 (275-295); Potassium 2.9 mMol/L (3.4-5.1); Sodium 145 mMol/L (136-145); Total Protein 5.5 gm/dL (5.7-8.2); eGFR > 60 See Note
[2024-12-14] MEDS: AMPICILLIN/SULBAC INJ 3 GM in SODIUM CHLORIDE 0.9% (POP) 100 ML IV ×4 (07:32→23:14)
--- NOTE | 2024-12-14 09:53 | ESPR_ITS ---
<Statement entered by Svetlana Guillaume MD - 12/22/24 08:17> I reviewed above note and agree with findings and plans. I have also personally examined the patient with medicine team and went over assessment and plan with medical team including financial intern and resident physician. <Statement entered by Fadi Arceo MD - 12/14/24 16:08> Patient seen and assessed in hospital bed alert oriented x 0, unable to tell me his name, his location or purpose. Patient does answer questions and is awake but takes very long to answer. At this time we will pursue MRI brain to rule out potential worsening of the metastasis of the brain secondary to breast cancer. Will also consult infectious disease has imaging studies noted mastoiditis. Patient continues to be on IV Unasyn without any concerning episodes of fever or elevated white blood cell count. Will continue monitoring patient and expect discharge within the next 24 to 48 hours. I have personally seen and examined the patient. I agree with the resident's assessment and plan as documented below. Fadi Arceo DO PGY-2 Internal Medicine - [facility] Documentation for date of: 12/14/24 Subjective Subjective Interval history: Patient seen at bedside. No acute overnight events. Patient continues to be confused. No complaints of nausea/vomiting, abdo pain, SOB, chest pain. Exam Vital Signs Temp Pulse Resp BP Pulse Ox O2 Del Method O2 Flow Rate 98.0 F 72 18 137/92 H 99 Room Air 12 12/14/24 08:00 12/14/24 08:00 12/14/24 08:00 12/14/24 08:00 12/14/24 08:00 12/14/24 08:00 12/13/24 00:10 Narrative Exam GEN: Awake. Lethargic. Saturating well on RA. Answering to some questions appropriately. HEENT: Normocephalic, atraumatic, mucous membranes dry. CVS: Tachycardic. Regular rate and rhythm, normal S1 and S2, no murmurs. RESP: Decreased lung sounds bilaterally. No wheezes or crackles. GI: Soft, nondistended, nontender, positive bowel sounds. No guarding or rebound tenderness. NEURO: A&O x 0 today. Moving all 4 limbs. No focal neuro deficit. Skin: No rash. Decubitus ulcers on L elbow and Left heel. Objective Labs 12/14/24 04:30 12/14/24 15:04 Labs: Laboratory Results - last 24 hr 12/12/24 12/13/24 12/13/24 17:05 12:50 14:10 WBC RBC Hgb Hct MCV MCH MCHC RDW Std Deviation Plt Count Neut % (Auto) Lymph % (Auto) [place] % (Auto) Eos % (Auto) Baso % (Auto) Neut # (Auto) Lymph # (Auto) [place] # (Auto) Eos # (Auto) Baso # (Auto) Immature Gran # (Auto) Absolute Nucleated RBC Immature Gran % Nucleated RBC % Puncture Site Right Radial ABG pH 7.46 H D ABG pCO2 34 D ABG pO2 84 ABG HCO3 25 ABG O2 Saturation 98 ABG Base Excess 1 VBG pH VBG pCO2 VBG pO2 VBG O2 Sat (Ej) VBG Base Excess FiO2 21 Sodium Potassium Chloride Carbon Dioxide Anion Gap BUN Creatinine Estim Creat Clear Calc eGFR BUN/Creatinine Ratio Glucose Calculated Osmolality Calcium Corrected Calcium Total Bilirubin AST ALT Alkaline Phosphatase Ammonia 33 H Total Protein Albumin Globulin Albumin/Globulin Ratio Coccidioides IgM Ab Negative 12/13/24 12/14/24 14:49 04:30 WBC 9.2 RBC 3.34 L Hgb 11.0 L Hct 33.1 L MCV 99 MCH 32.9 MCHC 33.2 RDW Std Deviation 61.1 H Plt Count 204 Neut % (Auto) 84 H Lymph % (Auto) 4 L [place] % (Auto) 12 Eos % (Auto) 0 Baso % (Auto) 0 Neut # (Auto) 7.7 Lymph # (Auto) 0.4 L [place] # (Auto) 1.1 H Eos # (Auto) 0.0 Baso # (Auto) 0.0 Immature Gran # (Auto) 0.04 H Absolute Nucleated RBC 0.00 Immature Gran % 0 Nucleated RBC % 0 Puncture Site ABG pH ABG pCO2 ABG pO2 ABG HCO3 ABG O2 Saturation ABG Base Excess VBG pH 7.38 VBG pCO2 42 VBG pO2 48 VBG O2 Sat (Ej) 84 L VBG Base Excess 0 FiO2 Sodium 145 Potassium 2.9 L D Chloride 106 Carbon Dioxide 26.8 Anion Gap 12 BUN 6 L Creatinine 0.5 L Estim Creat Clear Calc 135.4 eGFR > 60 BUN/Creatinine Ratio 12 Glucose 95 Calculated Osmolality 286 Calcium 8.1 L Corrected Calcium 8.5 Total Bilirubin 0.5 AST 20 ALT 9 L Alkaline Phosphatase 67 Ammonia Total Protein 5.5 L Albumin 3.5 Globulin 2.0 L Albumin/Globulin Ratio 1.8 Coccidioides IgM Ab ABG Interpretation ABG results: 12/12/24 12/13/24 12/13/24 15:50 14:10 14:49 ABG pH 7.25 L 7.46 H D ABG pCO2 61 H 34 D ABG pO2 78 L 84 ABG HCO3 27 H 25 ABG O2 Saturation 95 98 ABG Base Excess -2 1 VBG pH 7.38 VBG pCO2 42 VBG pO2 48 VBG Base Excess 0 Quality Measures Quality Measures VTE prophylaxis Advance care planning discussed with:: patient Assessment & Plan Assessment Current Active Medications: Generic Name Dose Route Start Last Admin Trade Name Freq PRN Reason Stop Dose Admin Acetaminophen 650 mg 12/12/24 16:22 Acetaminophen 325 Mg Tablet PO 01/11/25 16:21 Q6H PRN Fever >101.5 and pain 1-3 Hydrocodone Bitart/Acetaminophen 1 tab 12/12/24 16:22 12/13/24 18:10 Hydrocodone/Apap 10/325 Tab PO 12/17/24 16:21 1 tab Q4H PRN Administration PAIN SCALE 4-6 (Moderate Ampicillin Sodium/Sulbactam 100 mls @ 200 mls/hr 12/13/24 09:00 12/14/24 07:32 Sodium 3 gm/ Sodium Chloride IV 12/20/24 08:59 200 mls/hr Q6HR DEBBI Administration Ondansetron HCl 4 mg 12/12/24 16:22 Ondansetron Inj 2 Mg/Ml Inj 2 Ml IVP 01/11/25 16:21 Q6H PRN NAUSEA OR VOMITING Protocol Pantoprazole Sodium 40 mg 12/12/24 18:00 12/14/24 08:40 Pantoprazole Inj 40 Mg Vial IVP 01/11/25 17:59 40 mg QDAY DEBBI Administration Potassium Chloride 40 meq 12/14/24 14:00 Potassium Chloride 10% 20 Meq/15 Ml Udc PO 12/14/24 14:01 X1 ONE Plan Assessment: 64-year-old male with PHx of right breast cancer, with mets to spine and brain, multiple falls (latest in September, sustained left humerus fracture), hemorrhagic stroke, and sleep apnea on 2L nightly who presents from home on 12/12 for low grade fevers and altered mental status x 1day. Admitted for metabolic versus infectious acute encephalopathy. #Acute encephalopathy Multifactorial: underlying dementia, R mastoditis, R acute otitis media, bilat PNA On admission, WBC 10.1. Lactic and Pro-Pete within normal limits. UA was negative. Chest x-ray noted bilateral pneumonia. CT head noted acute right mastoiditis and right otitis media, negative for hemorrhage or acute changes. S/p azithromycin x 1 and ceftriaxone x 1 Passed swallow screen ABG - WNL Ammonia - 33 (mild elevation) Cocci IgM negative, IgG pending No fever or elevated WBC Plan: - MRI Brain w & wo contrast ordered - Neuro consulted - ID consulted for imaging finding of mastoiditis - Restarted Mementine ? Blood cultures pending ? IV Unasyn 3 g every 6 hour 12/12? ?Follow cocci and Legionella ?Neuro every 4 hours #History right breast cancer with metastasis Follows with [facility]. Has metastasis to spine and brain. Status post radiation and chemotherapy. Has monthly infusions and takes oral immunosuppressive medication daily. Plan ?Restart oral Piqray 300 mg BID upon discharge ?Morphine 2.5 mg IV every 6 hours nightly ?[place] as needed ?Holding topiramate, cyclobenzaprine #Hx of decubitus ulcers of L elbow and L heel Plan - Wound care - Zinc, Vit C, Multivitamin ordered for wound healing #History of multiple falls #Syncope #Recent left humerus fracture Multiple falls in the past, latest episode on 09/18/2024. Was discontinued from Eliquis after last fall, no IVC filter. Unknown cardiac history but home medication include diltiazem. Likely orthostatic versus weakness from malnutrition. Plan - [place] for new symptoms #Sleep apnea Was officially diagnosed with SORAYA however does not have CPAP machine. Uses 2 L oxygen at home overnight. Plan ?CPAP overnight Health Maintenance Disposition: med tele DVT prophylaxis: SCDs GI prophylaxis: Protonix Diet: dysphagia 3 diet CODE STATUS: FULL Case discussed with my attending Dr. Guillaume , and senior resident, Dr. Marielos Wynne MD PGY-1
[2024-12-14 10:27] LABS: Cocci Serology, IgG Negative (Negative)
[2024-12-14] MEDS: ZINC SULFATE 220 MG CAPSULE PO (10:42)
[2024-12-14] MEDS: MULTIVITAMINS TABLET 1 TAB PO (10:42)
[2024-12-14] MEDS: MEMANTINE HCL 5 MG TABLET 10 MG PO ×2 (10:43→21:56)
[2024-12-14] MEDS: POTASSIUM CHLORIDE 10% 20 MEQ/15 ML UDC 40 MEQ PO (14:03)
[2024-12-14 15:52] LABS: Albumin, Serum 4.1 gm/dL (3.4-4.8); Anion Gap 13 (7-16); BUN/Creatinine Ratio 12 Ratio (12-20); Blood Urea Nitrogen 7 mg/dL (9-23); Calcium 8.8 mg/dL (8.3-10.6); Calcium (Corrected) 8.8 mg/dL (8.5-10.1); Carbon Dioxide 25.1 mMol/L (20.0-31.0); Chloride 106 mMol/L (98-107); Creatinine (Component) 0.6 mg/dL (0.6-1.3); Estimated Creatinine Clearance 112.8 mL/min (>60); Glucose 102 mg/dL (74-106); Osmolality,Calculated 284 (275-295); Phosphorous 1.3 mg/dL (2.4-5.1); Potassium 3.7 mMol/L (3.4-5.1); Sodium 144 mMol/L (136-145); eGFR > 60 See Note
--- NOTE | 2024-12-14 16:19 | PC.SS ---
Hospital Bed Patient?s diagnosis requires positioning of the head or upper body to be elevated more than 30 degrees. Also the diagnosis requires positioning in order to alleviate pain and if the patient requires frequent changes in the body positioning and/or has an immediate need for change in the body position. Pillows and wedges have been considered and ruled out.
[2024-12-14] MEDS: MORPHINE SULF 30 MG TABCR PO (21:56)
[2024-12-14] MEDS: ASCORBIC ACID 250 MG TABLET 500 MG PO (21:56)
[2024-12-15] VITALS (10 sets, daily range): BP systolic 125–150; BP diastolic 72–90; PULSE 70–94; RESP 15–98; TEMP 36.2–37.1; O2SAT 92–98; BMI 12.0
--- NOTE | 2024-12-15 00:03 | PD.RESCONSUL ---
HPI Data of Consult Consult date: 12/14/24 Requesting Physician: Svetlana Guillaume MD Admitting Provider: Fidencio Gonzales DO Attending Provider: Svetlana Guillaume MD Primary Care Provider: Physician No Primary/Family Consult Narrative Reason for consult: Altered mental status History of present illness: Riaz Lazo is 64 yr male with PMH of right breast cancer, 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 was present at bedside who was able to provide history. She stated that since past couple of days he has decreased appetite, not at baseline mentation, requires additional assistance with walking, frequent falls. Patient has undergone chemotherapy and radiation last year for breast cancer. Currently on monthly injections and oral medications per . Patient was discontinued off of Eliquis this past September due to recurrent falls. (Was initially on the Eliquis due to frequent DVTs). He has history of hemorrhagic stroke and there was concern for high bleeding risk. Apparently follows with neurology in [place] but unalbe to identify which provider at this time. CT head negative for acute hemorrhage, did show findings of right mastoiditis, otitis media. However on physical exam no noticeable ear drainage or pain or erythema. Patient is oriented to self only and displays signs of underlying dementia. Patient admitted for further workup of acute encephalopathy. MRI is pending plan for EEG. cc:: cc: Svetlana Guillaume MD Exam Vital Signs Temp Pulse Resp BP Pulse Ox O2 Del Method O2 Flow Rate 97.0 F 105 H 16 121/64 97 Room Air 12 12/14/24 20:00 12/14/24 21:05 12/14/24 21:05 12/14/24 20:00 12/14/24 21:00 12/14/24 20:00 12/14/24 16:00 Narrative Exam General: Elderly male, No acute distress, cooperative HEENT: NCAT, No JVD noted. Mucosa dry. Pupils are equal and reactive to light bilaterally Cardiovascular: Normal S1 and S2. Regular rate and rhythm. Respiratory: Lungs are clear to auscultation bilaterally. No wheezing or crackles heard. Abdomen: Soft, nontender, not distended, normal bowel sounds. Skin: Warm to touch, dry, no rashes noted Musculoskeletal: No gross injuries. Able to move all 4 extremities. Weakness in left arm movement due to shoulder injury. No pitting edema Neuro: Alert and oriented x1. No focal neuro deficits. Psych: Normal affect and mood Results Labs 12/14/24 04:30 12/14/24 15:04 Labs: Short CBC 12/14/24 Range/Units 04:30 WBC 9.2 (3.8-10.6) Thou/mm3 Hgb 11.0 L (13.5-16.0) g/dL Hct 33.1 L (41.0-53.0) % Plt Count 204 (140-440) Thou/mm3 BMP 12/14/24 12/14/24 04:30 15:04 Sodium 145 144 Potassium 2.9 L D 3.7 D Chloride 106 106 Carbon Dioxide 26.8 25.1 BUN 6 L 7 L Creatinine 0.5 L 0.6 Glucose 95 102 Calcium 8.1 L 8.8 Liver Function 12/14/24 12/14/24 Range/Units 04:30 15:04 Total Bilirubin 0.5 (0.3-1.2) mg/dL AST 20 (0-34) U/L ALT 9 L (10-49) U/L Alkaline Phosphatase 67 (46-116) U/L Albumin 3.5 4.1 D (3.4-4.8) gm/dL ABG Interpretation ABG results: 12/12/24 12/13/24 12/13/24 15:50 14:10 14:49 ABG pH 7.25 L 7.46 H D ABG pCO2 61 H 34 D ABG pO2 78 L 84 ABG HCO3 27 H 25 ABG O2 Saturation 95 98 ABG Base Excess -2 1 VBG pH 7.38 VBG pCO2 42 VBG pO2 48 VBG Base Excess 0 Quality Measures Quality Measures VTE prophylaxis Advance care planning discussed with:: patient and spouse Medications Home Medications and Allergies Home Medications ?Medication ?Instructions ?Recorded ?Confirmed ?Type Benazepril Hcl 10 mg PO QDAY ##0 04/25/15 12/12/24 History Cyclobenzaprine * (FLEXERIL *) 10 mg PO BID #0 tabs 04/25/15 12/12/24 History Hydrocodone/Acetaminophen * (NORCO 1 tab PO Q4H PRN pain #0 tabs 04/25/15 12/12/24 History 10/325 *) topiramate 50 mg tablet (Topamax) 25 mg PO Q12H #0 tabs 02/22/17 12/12/24 History pregabalin 25 mg capsule (Lyrica) 100 mg PO BID 11/08/20 12/12/24 History alpelisib 300 mg/day (150 mg x 2) 300 mg PO QDAY 12/12/24 12/12/24 History tablet (Piqray) ascorbic acid (vitamin C) 500 mg 500 mg PO QDAY 12/12/24 12/12/24 History tablet cholecalciferol (vitamin D3) 125 125 mcg PO QDAY 12/12/24 12/12/24 History mcg (5,000 unit) tablet (Vitamin D3) diltiazem HCl 120 mg 120 mg PO QDAY 12/12/24 12/12/24 History capsule,extended release 24 hr, controlled (DILT-XR) famotidine 20 mg tablet 20 mg PO HS 12/12/24 12/12/24 History ferrous sulfate 324 mg (65 mg 324 mg PO QDAY 12/12/24 12/12/24 History iron) tablet,delayed release memantine 10 mg tablet 10 mg PO BID 12/12/24 12/12/24 History midodrine 10 mg tablet 10 mg PO TID 12/12/24 12/12/24 History morphine 30 mg tablet,extended 30 mg PO HS 12/12/24 12/14/24 History release bcnmgjpn-jfvrkpob-orfip acid 400 1 tab PO QDAY 12/12/24 12/12/24 History mcg-vit K 20 mcg-lycop 300 mcg tablet (One-A-Day Men's Multivitamin) ondansetron 8 mg disintegrating 8 mg PO Q8H 12/12/24 12/12/24 History tablet ondansetron 8 mg disintegrating 8 mg PO Q8H PRN nausea and vomiting 12/12/24 12/12/24 History tablet pantoprazole 40 mg tablet,delayed 40 mg PO QDAY 12/12/24 12/12/24 History release polyethylene glycol 3350 17 17 g PO QDAY 12/12/24 12/12/24 History gram/dose oral powder (ClearLax) vitamin E 400 unit tablet 400 unit PO QDAY 12/12/24 12/12/24 History Allergies Allergy/AdvReac Type Severity Reaction Status Date / Time No Known Allergies Allergy Verified 12/12/24 14:15 Visit Medications Acetaminophen (Acetaminophen 325 Mg Tablet) 650 mg PO Q6H PRN PRN Reason: Fever >101.5 and pain 1-3 Stop: 01/11/25 16:21 Hydrocodone Bitart/Acetaminophen (Hydrocodone/Apap 10/325 Tab) 1 tab PO Q4H PRN PRN Reason: PAIN SCALE 4-6 (Moderate Stop: 12/17/24 16:21 Last Admin: 12/14/24 17:31 Dose: 1 tab Ascorbic Acid (Ascorbic Acid 250 Mg Tablet) 500 mg PO BID [facility] Stop: 01/13/25 20:59 Last Admin: 12/14/24 21:56 Dose: 500 mg Dronabinol (Dronabinol 2.5 Mg Capsule) 2.5 mg PO BIDAC [facility] Stop: 01/13/25 16:59 Last Admin: 12/14/24 17:32 Dose: 2.5 mg Ampicillin Sodium/Sulbactam (Sodium 3 gm/ Sodium Chloride) 100 mls @ 200 mls/hr IV Q6HR [facility] Stop: 12/20/24 08:59 Last Admin: 12/14/24 23:14 Dose: 200 mls/hr Memantine (Memantine Hcl 5 Mg Tablet) 10 mg PO BID [facility] Stop: 01/13/25 10:14 Last Admin: 12/14/24 21:56 Dose: 10 mg Morphine Sulfate (Morphine Sulf 30 Mg Tabcr) 30 mg PO HS [facility]; Protocol Stop: 12/19/24 20:59 Last Admin: 12/14/24 21:56 Dose: 30 mg Multivitamins (Multivitamins Tablet) 1 tab PO QDAY [facility] Stop: 01/13/25 09:59 Last Admin: 12/14/24 10:42 Dose: 1 tab Ondansetron HCl (Ondansetron Inj 2 Mg/Ml Inj 2 Ml) 4 mg IVP Q6H PRN; Protocol PRN Reason: NAUSEA OR VOMITING Stop: 01/11/25 16:21 Pantoprazole Sodium (Pantoprazole Inj 40 Mg Vial) 40 mg IVP QDAY [facility] Stop: 01/11/25 17:59 Last Admin: 12/14/24 08:40 Dose: 40 mg Zinc Sulfate (Zinc Sulfate 220 Mg Capsule) 220 mg PO QDAY DEBBI Stop: 12/28/24 09:59 Last Admin: 12/14/24 10:42 Dose: 220 mg Discontinued Medications Lactated Ringer's (Lactated Ringers) 1,000 mls @ 999 mls/hr IV .Q1H1M ONE Stop: 12/12/24 12:47 Last Infusion: 12/12/24 14:07 Dose: Infused Ceftriaxone Sodium/Dextrose (Rocephin/D5w 1gm Iv Premix) 1 gm in 50 mls @ 100 mls/hr IV X1 ONE Stop: 12/12/24 13:31 Last Infusion: 12/12/24 15:03 Dose: Infused Azithromycin 500 mg/ Sodium (Chloride) 250 mls @ 250 mls/hr IV X1 ONE Stop: 12/12/24 14:01 Last Infusion: 12/12/24 15:51 Dose: Infused Lactated Ringer's (Lactated Ringers) 1,000 mls @ 500 mls/hr IV .Q2H ONE Stop: 12/12/24 15:02 Last Infusion: 12/12/24 17:49 Dose: Infused Lactated Ringer's (Lactated Ringers) 1,000 mls @ 75 mls/hr IV .[id number] ONE Stop: 12/13/24 06:41 Last Admin: 12/12/24 19:05 Dose: 75 mls/hr Dextrose (D5w) 1,000 mls @ 75 mls/hr IV .[id number] DEBBI Stop: 12/14/24 00:49 Last Admin: 12/13/24 11:52 Dose: 75 mls/hr Morphine Sulfate (Morphine Sulf Inj 4 Mg/Ml Vial) 2.5 mg IVP Q6H DEBBI Stop: 12/13/24 08:01 Last Admin: 12/13/24 08:56 Dose: 2.5 mg Non-Formulary Medication (Alpelisib [Piqray]) 300 mg PO QDAY DEBBI Stop: 01/13/25 10:14 Last Admin: 12/14/24 15:40 Dose: Not Given Potassium Chloride (Potassium Chloride 20 Meq Tabcr) 40 meq PO X1 ONE Stop: 12/14/24 07:14 Last Admin: 12/14/24 08:40 Dose: 40 meq Potassium Chloride (Potassium Chloride 10% 20 Meq/15 Ml Udc) 40 meq PO X1 ONE Stop: 12/14/24 14:01 Last Admin: 12/14/24 14:03 Dose: 40 meq Assessment & Plan Plan Riaz Lazo is 64 yr male with PMH of right breast cancer, 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 Patient admitted for further workup of acute encephalopathy. #Acute encephalopathy Multifactorial: underlying dementia, R mastoditis, R acute otitis media, bilat PNA, seizure endorses slow decline, oriented to self only, requires more assistance with ADLs recently. Is high fall risk, discontinued off Eliquis in September 2024. Chest x-ray noted bilateral pneumonia. CT head noted acute right mastoiditis and right otitis media, negative for hemorrhage or acute changes. -MRI brain -- ID consulted for imaging finding of mastoiditis - Mementine ? IV Unasyn 3 g every 6 hour 12/12? ?Follow cocci and Legionella ?Neuro every 4 hours -EEG #History right breast cancer with metastasis #Hx of decubitus ulcers of L elbow and L heel #History of multiple falls #Syncope #Recent left humerus fracture #Sleep apnea Primary care team to manage above conditions and ongoing care needs. The patient's management plan was discussed with my attending physician Dr. Beatty. Nadja Garrido, PGY-2 Attending Provider Attestation/Addendum I personally have seen and examined the patient at the bedside and agree with resident's findings, assessment and plan of care. Patient with history of old hemorrhagic stroke, baseline vascular dementia, breast cancer with brain and spine mets presented with generalized weakness and altered mental status. Patient does not experience any clinical symptoms suggestive of acute mastoiditis or otitis media. Continue with current management, follow-up with MRI brain and EEG. Continue with the memantine and discontinue Topamax from home meds upon discharge as it can lead to long-term cognitive impairment.
[2024-12-15] MEDS: AMPICILLIN/SULBAC INJ 3 GM in SODIUM CHLORIDE 0.9% (POP) 100 ML IV ×4 (05:27→23:04)
[2024-12-15 05:50] LABS: Basophils # (Auto) 0.0 Thou/mm3 (0.0-0.2); Basophils % (Auto) 0 % (0-2.5); Eosinophils # (Auto) 0.1 Thou/mm3 (0.0-0.5); Eosinophils % (Auto) 1 % (0-10); Hematocrit 29.3 % (41.0-53.0); Hemoglobin 10.0 g/dL (13.5-16.0); Immature Granulocytes Auto 0.06 Thou/mm3 (0.00-0.00); Lymphocytes # (Auto) 0.4 Thou/mm3 (1.0-4.8); Lymphocytes % (Auto) 6 % (10-50); Mean Corpuscular HGB Conc 34.1 g/dl (31.0-37.0); Mean Corpuscular Hemoglobin 32.4 pg (25.0-35.0); Mean Corpuscular Volume 95 fL (80-100); Monocytes # (Auto) 1.0 Thou/mm3 (0.0-0.8); Monocytes % (Auto) 17 % (0-12); Neutrophils # (Auto) 4.4 Thou/mm3 (1.8-7.7); Neutrophils % (Auto) 74 % (37-80); Nucleated Red Blood Cell # 0.00 Thou/mm3 (0.00-0.00); Nucleated Red Blood Cell % 0 /100 WBC (0); Platelet Count 206 Thou/mm3 (140-440); RDW Standard Deviation 57.0 fL (35.1-43.9); Red Blood Count 3.09 Miln/mm3 (4.50-5.90); White Blood Count 5.9 Thou/mm3 (3.8-10.6)
[2024-12-15 06:20] LABS: Alanine Aminotransferase 10 U/L (10-49); Albumin, Serum 3.4 gm/dL (3.4-4.8); Albumin/Globulin Ratio 1.7 (1.2-2.2); Alkaline Phosphatase 63 U/L (46-116); Anion Gap 11 (7-16); Aspartate Amino Transferase 18 U/L (0-34); BUN/Creatinine Ratio 13 Ratio (12-20); Bilirubin,Total 0.4 mg/dL (0.3-1.2); Blood Urea Nitrogen 8 mg/dL (9-23); Calcium 8.3 mg/dL (8.3-10.6); Calcium (Corrected) 8.8 mg/dL (8.5-10.1); Carbon Dioxide 25.5 mMol/L (20.0-31.0); Chloride 109 mMol/L (98-107); Creatinine (Component) 0.6 mg/dL (0.6-1.3); Estimated Creatinine Clearance 112.8 mL/min (>60); Globulin 2.0 gm/dL (2.3-3.5); Glucose 86 mg/dL (74-106); Osmolality,Calculated 286 (275-295); Potassium 3.0 mMol/L (3.4-5.1); Sodium 145 mMol/L (136-145); Total Protein 5.4 gm/dL (5.7-8.2); eGFR > 60 See Note
--- NOTE | 2024-12-15 07:03 | RESP.EEG ---
EEG COMPLETED WAITING TO BE READ
--- NOTE | 2024-12-15 08:05 | PC.SS ---
SS has sent D[facility]
[2024-12-15] MEDS: NAPH,KPH MBDB 1 PACKET (1.5 GM) PO (09:07)
[2024-12-15] MEDS: POTASSIUM CHL 10 mEq IVPB 10 MEQ/100 ML BAG 100 MEQ IV ×4 (09:07→12:18)
[2024-12-15] MEDS: MEMANTINE HCL 5 MG TABLET 10 MG PO ×2 (09:08→20:16)
[2024-12-15] MEDS: ASCORBIC ACID 250 MG TABLET 500 MG PO ×2 (09:08→20:16)
[2024-12-15] MEDS: MULTIVITAMINS TABLET 1 TAB PO (09:08)
[2024-12-15] MEDS: ZINC SULFATE 220 MG CAPSULE PO (09:08)
[2024-12-15 09:51] LABS: Magnesium 1.9 mg/dL (1.6-2.6); Phosphorous 1.6 mg/dL (2.4-5.1)
[2024-12-15] MEDS: Magnesium Sulfate 4 GM Ivpb 4 GM/50 ML BAG IV (11:47)
--- NOTE | 2024-12-15 13:24 | ESPR_ITS ---
<Statement entered by Svetlana Guillaume MD - 12/22/24 08:18> I reviewed above note and agree with findings and plans. I have also personally examined the patient with medicine team and went over assessment and plan with medical team including employee communications intern and resident physician. <Statement entered by Fadi Arceo MD - 12/15/24 15:53> Patient seen and assessed in hospital bed; alert oriented x 2 (person and place) with improvement in mental status noted. Patient's MRI findings did not show any acute hemorrhage, mass effect or midline shift and no acute infarct. Radiologist added addendum for acute right mastoiditis but clinically patient does not have any signs of mastoiditis. Patient continues to be on IV Unasyn and infectious disease has been consulted, pending recommendations. Neurology also following the case and the EEG was obtained pending official read. Will continue monitoring the patient and expect discharge within the next 24 to 48 hours. I have personally seen and examined the patient. I agree with the resident's assessment and plan as documented below. Fadi Arceo DO PGY-2 Internal Medicine - GME Documentation for date of: 12/15/24 Subjective Subjective Interval history: Patient seen at bedside. No acute overnight events. No complaints of nausea/vomiting, abdo pain, SOB, chest pain. No complaints of inner ear pain or pain behind the ear. Patient if left alone does not tend to eat, however with being present does. Patient had lunch while was present today. Dronabinol was started yesterday to stimulate appetite. Exam Vital Signs Temp Pulse Resp BP Pulse Ox O2 Del Method O2 Flow Rate 97.6 F 72 19 136/85 H 92 L Room Air 12 12/15/24 12:00 12/15/24 12:00 12/15/24 12:00 12/15/24 12:00 12/15/24 12:00 12/15/24 08:00 12/14/24 16:00 Narrative Exam GEN: Awake. Lethargic. Saturating well on RA. Answering to some questions appropriately. HEENT: Normocephalic, atraumatic, mucous membranes dry. CVS: Regular rate and rhythm, normal S1 and S2, no murmurs. RESP: Decreased lung sounds bilaterally. No wheezes or crackles. GI: Soft, nondistended, nontender, positive bowel sounds. No guarding or rebound tenderness. NEURO: A&O x 2 today. Moving all 4 limbs. No focal neuro deficit. Skin: No rash. Decubitus ulcers on L elbow and Left heel. Objective Labs 12/15/24 04:50 12/15/24 04:50 Labs: Laboratory Results - last 24 hr 12/14/24 12/15/24 15:04 04:50 WBC 5.9 RBC 3.09 L Hgb 10.0 L Hct 29.3 L MCV 95 MCH 32.4 MCHC 34.1 RDW Std Deviation 57.0 H Plt Count 206 Neut % (Auto) 74 Lymph % (Auto) 6 L [place] % (Auto) 17 H Eos % (Auto) 1 Baso % (Auto) 0 Neut # (Auto) 4.4 Lymph # (Auto) 0.4 L [place] # (Auto) 1.0 H Eos # (Auto) 0.1 Baso # (Auto) 0.0 Immature Gran # (Auto) 0.06 H Absolute Nucleated RBC 0.00 Immature Gran % 1 H Nucleated RBC % 0 Sodium 144 145 Potassium 3.7 D 3.0 L D Chloride 106 109 H Carbon Dioxide 25.1 25.5 Anion Gap 13 11 BUN 7 L 8 L Creatinine 0.6 0.6 Estim Creat Clear Calc 112.8 112.8 eGFR > 60 > 60 BUN/Creatinine Ratio 12 13 Glucose 102 86 Calculated Osmolality 284 286 Calcium 8.8 8.3 Corrected Calcium 8.8 8.8 Phosphorus 1.3 L 1.6 L Magnesium 1.9 Total Bilirubin 0.4 AST 18 ALT 10 Alkaline Phosphatase 63 Total Protein 5.4 L Albumin 4.1 D 3.4 D Globulin 2.0 L Albumin/Globulin Ratio 1.7 ABG Interpretation ABG results: 12/12/24 12/13/24 12/13/24 15:50 14:10 14:49 ABG pH 7.25 L 7.46 H D ABG pCO2 61 H 34 D ABG pO2 78 L 84 ABG HCO3 27 H 25 ABG O2 Saturation 95 98 ABG Base Excess -2 1 VBG pH 7.38 VBG pCO2 42 VBG pO2 48 VBG Base Excess 0 Quality Measures Quality Measures VTE prophylaxis Advance care planning discussed with:: patient Assessment & Plan Assessment Current Active Medications: Generic Name Dose Route Start Last Admin Trade Name Freq PRN Reason Stop Dose Admin Acetaminophen 650 mg 12/12/24 16:22 Acetaminophen 325 Mg Tablet PO 01/11/25 16:21 Q6H PRN Fever >101.5 and pain 1-3 Hydrocodone Bitart/Acetaminophen 1 tab 12/12/24 16:22 12/15/24 09:08 Hydrocodone/Apap 10/325 Tab PO 12/17/24 16:21 1 tab Q4H PRN Administration PAIN SCALE 4-6 (Moderate Ascorbic Acid 500 mg 12/14/24 21:00 12/15/24 09:08 Ascorbic Acid 250 Mg Tablet PO 01/13/25 20:59 500 mg BID DEBBI Administration Cadexomer Iodine 0 gm 12/15/24 10:15 Cadexomer Iodine Gel 40 Gm Tube TOP 12/22/24 10:14 DAILY DEBBI Dronabinol 2.5 mg 12/14/24 17:00 12/15/24 07:25 Dronabinol 2.5 Mg Capsule PO 01/13/25 16:59 2.5 mg BIDAC DEBBI Administration Ampicillin Sodium/Sulbactam 100 mls @ 200 mls/hr 12/13/24 09:00 12/15/24 11:10 Sodium 3 gm/ Sodium Chloride IV 12/20/24 08:59 200 mls/hr Q6HR DEBBI Administration Magnesium Sulfate 4 gm in 50 mls @ 12.5 mls/hr 12/15/24 11:02 12/15/24 11:47 Magnesium Sulfate Ivpb IV 12/15/24 15:01 12.5 mls/hr X1 ONE Administration Memantine 10 mg 12/14/24 10:15 12/15/24 09:08 Memantine Hcl 5 Mg Tablet PO 01/13/25 10:14 10 mg BID DEBBI Administration Morphine Sulfate 30 mg 12/14/24 21:00 12/14/24 21:56 Morphine Sulf 30 Mg Tabcr PO 12/19/24 20:59 30 mg HS DEBBI Administration Protocol Multivitamins 1 tab 12/14/24 10:00 12/15/24 09:08 Multivitamins Tablet PO 01/13/25 09:59 1 tab QDAY DEBIB Administration Ondansetron HCl 4 mg 12/12/24 16:22 Ondansetron Inj 2 Mg/Ml Inj 2 Ml IVP 01/11/25 16:21 Q6H PRN NAUSEA OR VOMITING Protocol Pantoprazole Sodium 40 mg 12/12/24 18:00 12/15/24 09:07 Pantoprazole Inj 40 Mg Vial IVP 01/11/25 17:59 40 mg QDAY DEBBI Administration Pantoprazole Sodium 40 mg 12/16/24 09:00 Pantoprazole 40 Mg Tablet PO 01/15/25 08:59 QDAY DEBBI Protocol Zinc Sulfate 220 mg 12/14/24 10:00 12/15/24 09:08 Zinc Sulfate 220 Mg Capsule PO 12/28/24 09:59 220 mg QDAY DEBBI Administration Plan Assessment: 64-year-old male with PHx of right breast cancer, with mets to spine and brain, multiple falls (latest in September, sustained left humerus fracture), hemorrhagic stroke, and sleep apnea on 2L nightly who presents from home on 12/12 for low grade fevers and altered mental status x 1day. Admitted for metabolic versus infectious acute encephalopathy. #Acute encephalopathy 2/ Multifactorial: underlying dementia, R mastoditis, R acute otitis media, bilat PNA, ?seizures On admission, WBC 10.1. Lactic and Pro-Pete within normal limits. UA was negative. Chest x-ray noted bilateral pneumonia. CT head noted acute right mastoiditis and right otitis media, negative for hemorrhage or acute changes. ABG - WNL Ammonia - 33 (mild elevation) Cocci IgM negative, IgG pending MRI brain 12/14/24 showed acute right mastoiditis, however patient having no signs or symptoms of mastoiditis No fever or elevated WBC EEG taken overnight, pending read, to rule out underlying seizure disorder Plan: - Neuro consulted - ID consulted for imaging finding of mastoiditis - Restarted Mementine ? Blood cultures pending ? IV Unasyn 3 g every 6 hour (12/12? ? Follow cocci and Legionella ? Neuro checks every 4 hours #Hypokalemia #Hypophosphatemia #Hypomagnesimia Related to poor oral intake as patient has not been eating while in hospital Plan ? Continue dronabinol twice daily ? KCl oral tablet 40 mEq x 1 and IV KCl 40 mEq x 1 ? Neutra-Phos 1 packet x 1 ? IV magnesium sulfate 4 g x 1 #History right breast cancer with metastasis Follows with [facility]. Has metastasis to spine and brain. Status post radiation and chemotherapy. Has monthly infusions and takes oral immunosuppressive medication daily. Plan ? Restart oral Piqray 300 mg BID upon discharge ? Morphine 2.5 mg IV every 6 hours nightly ? [place] as needed ? Holding topiramate, cyclobenzaprine #Hx of decubitus ulcers of L elbow and L heel Plan - Wound care - Zinc, Vit C, Multivitamin ordered for wound healing #History of multiple falls #Syncope #Recent left humerus fracture Multiple falls in the past, latest episode on 09/18/2024. Was discontinued from Eliquis after last fall, no IVC filter. Unknown cardiac history but home medication include diltiazem. Likely orthostatic versus weakness from malnutrition. Plan - Montior for new symptoms #Sleep apnea Was officially diagnosed with SORAYA however does not have CPAP machine. Uses 2 L oxygen at home overnight. Plan ?CPAP overnight Health Maintenance Disposition: med tele DVT prophylaxis: SCDs GI prophylaxis: Protonix Diet: dysphagia 3 diet CODE STATUS: FULL Case discussed with my attending Dr. Guillaume, and senior resident, Dr. Marielos Wynne MD PGY-1
[2024-12-15] MEDS: CADEXOMER IODINE GEL 40 GM TUBE TOP (14:44)
--- NOTE | 2024-12-15 15:16 | PC.NURSE ---
at bedside wound care performed and educated on wound care. states has done wound care before and is able to do it. verbalizes understanding.
--- NOTE | 2024-12-15 19:23 | PD.RESPRO ---
Documentation for date of: 12/15/24 Subjective Subjective Interval history: Patient examined at bedside. Observed eating dinner independently. He was able to get out of bed and walk to the door with a walker. Continues to complain of left shoulder pain with movement. MRI read was negative for acute hemorrahge or mass affect. EEG is still pending. Mentation is same as yesterday. Patient only oriented to self. No signs or symptoms reflecting mastoiditis. Exam Vital Signs Temp Pulse Resp BP Pulse Ox O2 Del Method O2 Flow Rate 98.1 F 76 19 125/78 94 L Room Air 12 12/15/24 16:00 12/15/24 16:00 12/15/24 16:00 12/15/24 16:00 12/15/24 16:00 12/15/24 16:00 12/14/24 16:00 Narrative Exam General: Elderly male, No acute distress, cooperative HEENT: NCAT, No JVD noted. Mucosa moist. Pupils are equal and reactive to light bilaterally Cardiovascular: Normal S1 and S2. Regular rate and rhythm. Respiratory: Lungs are clear to auscultation bilaterally. No wheezing or crackles heard. Abdomen: Soft, nontender, not distended, normal bowel sounds. Skin: Warm to touch, dry Musculoskeletal: No gross injuries. Able to move all 4 extremities. Weakness in left arm movement due to shoulder injury. No pitting edema Neuro: Alert and oriented x1. No focal neuro deficits. Psych: Normal affect and mood Objective Labs 12/16/24 05:02 12/16/24 05:02 Labs: Laboratory Results - last 24 hr 12/15/24 04:50 WBC 5.9 RBC 3.09 L Hgb 10.0 L Hct 29.3 L MCV 95 MCH 32.4 MCHC 34.1 RDW Std Deviation 57.0 H Plt Count 206 Neut % (Auto) 74 Lymph % (Auto) 6 L [place] % (Auto) 17 H Eos % (Auto) 1 Baso % (Auto) 0 Neut # (Auto) 4.4 Lymph # (Auto) 0.4 L [place] # (Auto) 1.0 H Eos # (Auto) 0.1 Baso # (Auto) 0.0 Immature Gran # (Auto) 0.06 H Absolute Nucleated RBC 0.00 Immature Gran % 1 H Nucleated RBC % 0 Sodium 145 Potassium 3.0 L D Chloride 109 H Carbon Dioxide 25.5 Anion Gap 11 BUN 8 L Creatinine 0.6 Estim Creat Clear Calc 112.8 eGFR > 60 BUN/Creatinine Ratio 13 Glucose 86 Calculated Osmolality 286 Calcium 8.3 Corrected Calcium 8.8 Phosphorus 1.6 L Magnesium 1.9 Total Bilirubin 0.4 AST 18 ALT 10 Alkaline Phosphatase 63 Total Protein 5.4 L Albumin 3.4 D Globulin 2.0 L Albumin/Globulin Ratio 1.7 ABG Interpretation ABG results: 12/12/24 12/13/24 12/13/24 15:50 14:10 14:49 ABG pH 7.25 L 7.46 H D ABG pCO2 61 H 34 D ABG pO2 78 L 84 ABG HCO3 27 H 25 ABG O2 Saturation 95 98 ABG Base Excess -2 1 VBG pH 7.38 VBG pCO2 42 VBG pO2 48 VBG Base Excess 0 Quality Measures Quality Measures VTE prophylaxis Advance care planning discussed with:: patient Assessment & Plan Assessment Current Active Medications: Generic Name Dose Route Start Last Admin Trade Name Freq PRN Reason Stop Dose Admin Acetaminophen 650 mg 12/12/24 16:22 Acetaminophen 325 Mg Tablet PO 01/11/25 16:21 Q6H PRN Fever >101.5 and pain 1-3 Hydrocodone Bitart/Acetaminophen 1 tab 12/12/24 16:22 12/15/24 14:54 Hydrocodone/Apap 10/325 Tab PO 12/17/24 16:21 1 tab Q4H PRN Administration PAIN SCALE 4-6 (Moderate Ascorbic Acid 500 mg 12/14/24 21:00 12/15/24 09:08 Ascorbic Acid 250 Mg Tablet PO 01/13/25 20:59 500 mg BID DEBBI Administration Cadexomer Iodine 0 gm 12/15/24 10:15 12/15/24 14:44 Cadexomer Iodine Gel 40 Gm Tube TOP 12/22/24 10:14 1 appln DAILY DEBBI Administration Dronabinol 2.5 mg 12/14/24 17:00 12/15/24 17:22 Dronabinol 2.5 Mg Capsule PO 01/13/25 16:59 2.5 mg BIDAC DEBBI Administration Ampicillin Sodium/Sulbactam 100 mls @ 200 mls/hr 12/13/24 09:00 12/15/24 17:22 Sodium 3 gm/ Sodium Chloride IV 12/20/24 08:59 200 mls/hr Q6HR DEBBI Administration Memantine 10 mg 12/14/24 10:15 12/15/24 09:08 Memantine Hcl 5 Mg Tablet PO 01/13/25 10:14 10 mg BID DEBBI Administration Morphine Sulfate 30 mg 12/14/24 21:00 12/14/24 21:56 Morphine Sulf 30 Mg Tabcr PO 12/19/24 20:59 30 mg HS DEBBI Administration Protocol Multivitamins 1 tab 12/14/24 10:00 12/15/24 09:08 Multivitamins Tablet PO 01/13/25 09:59 1 tab QDAY DEBBI Administration Ondansetron HCl 4 mg 12/12/24 16:22 Ondansetron Inj 2 Mg/Ml Inj 2 Ml IVP 01/11/25 16:21 Q6H PRN NAUSEA OR VOMITING Protocol Pantoprazole Sodium 40 mg 12/16/24 09:00 Pantoprazole 40 Mg Tablet PO 01/15/25 08:59 QDAY DEBBI Protocol Zinc Sulfate 220 mg 12/14/24 10:00 12/15/24 09:08 Zinc Sulfate 220 Mg Capsule PO 12/28/24 09:59 220 mg QDAY DEBBI Administration Plan Riaz Lazo is 64 yr male with PMH of right breast cancer, 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 Patient admitted for further workup of acute encephalopathy. #Acute encephalopathy-imoroving Multifactorial: underlying dementia, R mastoditis, R acute otitis media, bilat PNA, seizure endorses slow decline, oriented to self only, requires more assistance with ADLs recently. Is high fall risk, discontinued off Eliquis in September 2024. Chest x-ray noted bilateral pneumonia. CT head noted acute right mastoiditis and right otitis media, negative for hemorrhage or acute changes. -MRI brain -- ID consulted for imaging finding of mastoiditis - Mementine ? IV Unasyn 3 g every 6 hour 12/12? ?Follow cocci and Legionella ?Neuro every 4 hours -EEG #History right breast cancer with metastasis #Hx of decubitus ulcers of L elbow and L heel #History of multiple falls #Syncope #Recent left humerus fracture #Sleep apnea Primary care team to manage above conditions and ongoing care needs. The patient's management plan was discussed with my attending physician Dr. Beatty. Nadja Garrido, PGY-2 Attending Provider Attestation/Addendum I personally have seen and examined the patient at the bedside and I agreed with the resident's findings, assessment and plan of care. Patient's mental status is back to baseline. He even ambulated with walker, close to baseline. Follow-up with EEG. MRI brain did not show any acute intracranial abnormalities. Reassurance given to the patient and the at the bedside. He will need PT evaluation tomorrow and then decide about the discharge.
[2024-12-15] MEDS: MORPHINE SULF 30 MG TABCR PO (20:16)
[2024-12-16] VITALS (9 sets, daily range): BP systolic 117–137; BP diastolic 69–90; PULSE 76–103; RESP 16–97; TEMP 36.4–36.9; O2SAT 92–100
[2024-12-16] MEDS: AMPICILLIN/SULBAC INJ 3 GM in SODIUM CHLORIDE 0.9% (POP) 100 ML IV ×4 (05:31→23:21)
[2024-12-16 05:51] LABS: Basophils # (Auto) 0.0 Thou/mm3 (0.0-0.2); Basophils % (Auto) 0 % (0-2.5); Eosinophils # (Auto) 0.4 Thou/mm3 (0.0-0.5); Eosinophils % (Auto) 5 % (0-10); Hematocrit 30.9 % (41.0-53.0); Hemoglobin 10.4 g/dL (13.5-16.0); Immature Granulocytes Auto 0.09 Thou/mm3 (0.00-0.00); Lymphocytes # (Auto) 0.4 Thou/mm3 (1.0-4.8); Lymphocytes % (Auto) 5 % (10-50); Mean Corpuscular HGB Conc 33.7 g/dl (31.0-37.0); Mean Corpuscular Hemoglobin 32.0 pg (25.0-35.0); Mean Corpuscular Volume 95 fL (80-100); Monocytes # (Auto) 1.3 Thou/mm3 (0.0-0.8); Monocytes % (Auto) 16 % (0-12); Neutrophils # (Auto) 5.8 Thou/mm3 (1.8-7.7); Neutrophils % (Auto) 72 % (37-80); Nucleated Red Blood Cell # 0.00 Thou/mm3 (0.00-0.00); Nucleated Red Blood Cell % 0 /100 WBC (0); Platelet Count 178 Thou/mm3 (140-440); RDW Standard Deviation 57.7 fL (35.1-43.9); Red Blood Count 3.25 Miln/mm3 (4.50-5.90); White Blood Count 8.0 Thou/mm3 (3.8-10.6)
[2024-12-16 06:25] LABS: Alanine Aminotransferase 8 U/L (10-49); Albumin, Serum 3.6 gm/dL (3.4-4.8); Albumin/Globulin Ratio 1.8 (1.2-2.2); Alkaline Phosphatase 63 U/L (46-116); Anion Gap 9 (7-16); Aspartate Amino Transferase 20 U/L (0-34); BUN/Creatinine Ratio 17 Ratio (12-20); Bilirubin,Total 0.3 mg/dL (0.3-1.2); Blood Urea Nitrogen 10 mg/dL (9-23); Calcium 8.7 mg/dL (8.3-10.6); Calcium (Corrected) 9.0 mg/dL (8.5-10.1); Carbon Dioxide 26.5 mMol/L (20.0-31.0); Chloride 108 mMol/L (98-107); Creatinine (Component) 0.6 mg/dL (0.6-1.3); Estimated Creatinine Clearance 112.8 mL/min (>60); Globulin 2.0 gm/dL (2.3-3.5); Glucose 88 mg/dL (74-106); Osmolality,Calculated 282 (275-295); Potassium 4.0 mMol/L (3.4-5.1); Sodium 143 mMol/L (136-145); Total Protein 5.6 gm/dL (5.7-8.2); eGFR > 60 See Note
[2024-12-16] MEDS: MEMANTINE HCL 5 MG TABLET 10 MG PO ×2 (08:25→20:25)
[2024-12-16] MEDS: PANTOPRAZOLE 40 MG TABLET PO (08:25)
[2024-12-16] MEDS: ASCORBIC ACID 250 MG TABLET 500 MG PO ×2 (08:25→20:23)
[2024-12-16] MEDS: MULTIVITAMINS TABLET 1 TAB PO (08:26)
[2024-12-16] MEDS: ZINC SULFATE 220 MG CAPSULE PO (08:26)
--- NOTE | 2024-12-16 12:07 | ESPR_ITS ---
<Statement entered by Lala Mead MD - 12/16/24 12:33> I discussed with and supervised the materials intern physician who took care of this patient. I personally saw and examined the patient and discussed the assessment and plan with the entire medicine team, including my attending , I agree with the assessment and plan as documented below Lala Mead M.D. PGY-3 Disclaimer: Despite multiple revisions, due to the dictation software being used, the document bellow may not be free of grammatical errors including phonetic/typographic errors. However, this does not deter from our commitment to providing health care in the patient's best interest in mind. Documentation for date of: 12/16/24 Subjective Subjective Interval history: Patient seen at bedside. No acute overnight events. No complaints of nausea/vomiting, abdo pain, SOB, chest pain. No complaints of inner ear pain or pain behind the ear. Patient eating. Exam Vital Signs Temp Pulse Resp BP Pulse Ox O2 Del Method O2 Flow Rate 97.9 F 87 20 136/90 H 92 L Room Air 12 12/16/24 08:00 12/16/24 10:07 12/16/24 10:07 12/16/24 08:00 12/16/24 08:00 12/16/24 08:00 12/14/24 16:00 Narrative Exam GEN: Awake. Lethargic. Saturating well on RA. Answering to some questions appropriately. HEENT: Normocephalic, atraumatic, mucous membranes dry. CVS: Regular rate and rhythm, normal S1 and S2, no murmurs. RESP: Decreased lung sounds bilaterally. No wheezes or crackles. GI: Soft, nondistended, nontender, positive bowel sounds. No guarding or rebound tenderness. NEURO: A&O x 2 today (same as yesterday). Moving all 4 limbs. No focal neuro deficit. Skin: No rash. Decubitus ulcers on L elbow and Left heel. Objective Labs 12/17/24 05:05 12/17/24 05:05 Labs: Laboratory Results - last 24 hr 12/16/24 05:02 WBC 8.0 RBC 3.25 L Hgb 10.4 L Hct 30.9 L MCV 95 MCH 32.0 MCHC 33.7 RDW Std Deviation 57.7 H Plt Count 178 Neut % (Auto) 72 Lymph % (Auto) 5 L [place] % (Auto) 16 H Eos % (Auto) 5 Baso % (Auto) 0 Neut # (Auto) 5.8 Lymph # (Auto) 0.4 L [place] # (Auto) 1.3 H Eos # (Auto) 0.4 Baso # (Auto) 0.0 Immature Gran # (Auto) 0.09 H Absolute Nucleated RBC 0.00 Immature Gran % 1 H Nucleated RBC % 0 Sodium 143 Potassium 4.0 D Chloride 108 H Carbon Dioxide 26.5 Anion Gap 9 BUN 10 Creatinine 0.6 Estim Creat Clear Calc 112.8 eGFR > 60 BUN/Creatinine Ratio 17 Glucose 88 Calculated Osmolality 282 Calcium 8.7 Corrected Calcium 9.0 Total Bilirubin 0.3 AST 20 ALT 8 L Alkaline Phosphatase 63 Total Protein 5.6 L Albumin 3.6 Globulin 2.0 L Albumin/Globulin Ratio 1.8 ABG Interpretation ABG results: 12/12/24 12/13/24 12/13/24 15:50 14:10 14:49 ABG pH 7.25 L 7.46 H D ABG pCO2 61 H 34 D ABG pO2 78 L 84 ABG HCO3 27 H 25 ABG O2 Saturation 95 98 ABG Base Excess -2 1 VBG pH 7.38 VBG pCO2 42 VBG pO2 48 VBG Base Excess 0 Quality Measures Quality Measures VTE prophylaxis Advance care planning discussed with:: patient Assessment & Plan Assessment Current Active Medications: Generic Name Dose Route Start Last Admin Trade Name Freq PRN Reason Stop Dose Admin Acetaminophen 650 mg 12/12/24 16:22 Acetaminophen 325 Mg Tablet PO 01/11/25 16:21 Q6H PRN Fever >101.5 and pain 1-3 Hydrocodone Bitart/Acetaminophen 1 tab 12/12/24 16:22 12/15/24 14:54 Hydrocodone/Apap 10/325 Tab PO 12/17/24 16:21 1 tab Q4H PRN Administration PAIN SCALE 4-6 (Moderate Ascorbic Acid 500 mg 12/14/24 21:00 12/16/24 08:25 Ascorbic Acid 250 Mg Tablet PO 01/13/25 20:59 500 mg BID DEBBI Administration Cadexomer Iodine 0 gm 12/15/24 10:15 12/15/24 14:44 Cadexomer Iodine Gel 40 Gm Tube TOP 12/22/24 10:14 1 appln DAILY DEBBI Administration Dronabinol 2.5 mg 12/14/24 17:00 12/16/24 07:51 Dronabinol 2.5 Mg Capsule PO 01/13/25 16:59 2.5 mg BIDAC DEBBI Administration Ampicillin Sodium/Sulbactam 100 mls @ 200 mls/hr 12/13/24 09:00 12/16/24 11:23 Sodium 3 gm/ Sodium Chloride IV 12/20/24 08:59 200 mls/hr Q6HR DEBBI Administration Memantine 10 mg 12/14/24 10:15 12/16/24 08:25 Memantine Hcl 5 Mg Tablet PO 01/13/25 10:14 10 mg BID DEBBI Administration Morphine Sulfate 30 mg 12/14/24 21:00 12/15/24 20:16 Morphine Sulf 30 Mg Tabcr PO 12/19/24 20:59 30 mg HS DEBBI Administration Protocol Multivitamins 1 tab 12/14/24 10:00 12/16/24 08:26 Multivitamins Tablet PO 01/13/25 09:59 1 tab QDAY DEBBI Administration Ondansetron HCl 4 mg 12/12/24 16:22 Ondansetron Inj 2 Mg/Ml Inj 2 Ml IVP 01/11/25 16:21 Q6H PRN NAUSEA OR VOMITING Protocol Pantoprazole Sodium 40 mg 12/16/24 09:00 12/16/24 08:25 Pantoprazole 40 Mg Tablet PO 01/15/25 08:59 40 mg QDAY DEBBI Administration Protocol Zinc Sulfate 220 mg 12/14/24 10:00 12/16/24 08:26 Zinc Sulfate 220 Mg Capsule PO 12/28/24 09:59 220 mg QDAY DEBBI Administration Plan Assessment: 64-year-old male with PHx of right breast cancer, with mets to spine and brain, multiple falls (latest in September, sustained left humerus fracture), hemorrhagic stroke, and sleep apnea on 2L nightly who presents from home on 12/12 for low grade fevers and altered mental status x 1day. Admitted for acute encephalopathy. #Acute encephalopathy 2/2 Multifactorial: underlying dementia, polypharmacy R mastoditis, bilat PNA, ?seizures On admission, WBC 10.1. Lactic and Pro-Pete within normal limits. UA was negative. Chest x-ray noted bilateral pneumonia. CT head noted acute right mastoiditis and right otitis media, negative for hemorrhage or acute changes. ABG - WNL Ammonia - 33 (mild elevation) Cocci IgM negative, IgG pending MRI brain 12/14/24 showed acute right mastoiditis, however patient having no signs or symptoms of mastoiditis No fever or elevated WBC EEG taken overnight, pending read, to rule out underlying seizure disorder Blood cultures negative after 48 hrs, Cocci neg, Plan: - Neuro consulted, appreciate recs - ID consulted for imaging finding of mastoiditis - Restarted Mementine ? IV Unasyn 3 g every 6 hour (12/12? ? Neuro checks every 4 hours #History right breast cancer with metastasis Follows with [facility]. Has metastasis to spine and brain. Status post radiation and chemotherapy. Has monthly infusions and takes oral immunosuppressive medication daily. Plan ? Restart oral Piqray 300 mg BID upon discharge ? Morphine 2.5 mg IV every 6 hours nightly ? [place] as needed ? Holding topiramate, cyclobenzaprine #Hx of decubitus ulcers of L elbow and L heel Plan - Wound care - Zinc, Vit C, Multivitamin ordered for wound healing #History of multiple falls #Syncope #Recent left humerus fracture Multiple falls in the past, latest episode on 09/18/2024. Was discontinued from Eliquis after last fall, no IVC filter. Unknown cardiac history but home medication include diltiazem. Likely orthostatic versus weakness from malnutrition. Plan - [place] for new symptoms #Sleep apnea Was officially diagnosed with SORAYA however does not have CPAP machine. Uses 2 L oxygen at home overnight. Plan ?CPAP overnight Health Maintenance Disposition: med tele DVT prophylaxis: SCDs GI prophylaxis: Protonix Diet: dysphagia 3 diet CODE STATUS: FULL Case discussed with my attending Dr. Medina, and senior resident, Dr. Boston Wynne MD PGY-1 Attending Provider Attestation/Addendum I attest that I was physically present for the evaluation, physical examination, lab and imaging review of the patient with the residents. I discussed the case with the residents and agree with the findings and plans of care as documented above. Patient seen and examined at bedside this morning. Appears comfortable and denies any new complaints. Appears sleepy but wakes up on calling and able to answer few questions. Mentation has been stable, continues to be on IV antibiotics for possible pneumonia/mastoiditis as seen on imaging, lower suspicion for acute processs as patient doesnot have earache or discharge, fever or leukocytosis. Neurology following closely, appreciate recommendations. Awaiting EEG results. Meagan Medina MD
[2024-12-16] MEDS: CADEXOMER IODINE GEL 40 GM TUBE TOP (13:04)
[2024-12-16] MEDS: MORPHINE SULF 30 MG TABCR PO (20:25)
--- NOTE | 2024-12-16 22:40 | PD.NEUROPROG ---
Documentation for date of: 12/16/24 Subjective Subjective Interval history: Patient was seen in [facility] today while he was getting fitted for CPAP by the respiratory replaced. No new symptoms or events overnight. Exam - Neurology Vital Signs Temp Pulse Resp BP Pulse Ox O2 Del Method O2 Flow Rate 98.4 F 90 16 117/69 94 L Room Air 12 12/16/24 20:00 12/16/24 20:00 12/16/24 20:00 12/16/24 20:00 12/16/24 20:00 12/16/24 20:00 12/14/24 16:00 Narrative Exam GENERAL APPEARANCE: Well hydrated, well-nourished in no acute distress. HEENT: Normocephalic, atraumatic, extraocular movements intact. Pupils: Equal reacting to light and accommodation NECK: Supple, no JVD or bruits. CARDIOVASULAR: Heart: S1, S2 heard, regular without S3-S4 or murmur no rubs or gallops. LUNGS/CHEST: Clear to auscultation bilaterally. No rails, rhonchi, or wheezing. Normal inspection. ABDOMEN: Soft, nontender, with normal bowel sounds. No pulsatile masses. No rebound, rigidity, or guarding. Normal inspection and palpation. EXTREMITIES: Normal inspection and palpation. No edema, clubbing or cyanosis. SKIN: Warm and dry without rashes. Normal inspection. MUSCULOSKELETAL: No cervical, thoracic, lumbar or midline bony tenderness. Normal inspection. NEURO: Alert, awake and oriented x3. Cranial nerves: II through XII grossly intact. Speech and language: Normal with no dysarthria or dysphasia. Motor system: Tone and bulk: Normal: Strength: 5 out of 5 in all 4 extremities; No pronator drift noted. Deep tendon reflexes: 2+ bilaterally symmetrical. Plantar reflex: Downgoing bilaterally. Sensory system: Intact to all modalities of sensation bilaterally. Coordination: Intact to [id number] test bilaterally. No ataxia, no dysmetria, or dysdiadochokinesia noted. No intention tremors noted. Gait: Not tested. No signs of meningeal irritation noted. PSYCHIATRIC: Normal mood and affect. Objective Labs 12/16/24 05:02 12/16/24 05:02 Labs: Laboratory Results - last 24 hr 12/16/24 05:02 WBC 8.0 RBC 3.25 L Hgb 10.4 L Hct 30.9 L MCV 95 MCH 32.0 MCHC 33.7 RDW Std Deviation 57.7 H Plt Count 178 Neut % (Auto) 72 Lymph % (Auto) 5 L [place] % (Auto) 16 H Eos % (Auto) 5 Baso % (Auto) 0 Neut # (Auto) 5.8 Lymph # (Auto) 0.4 L [place] # (Auto) 1.3 H Eos # (Auto) 0.4 Baso # (Auto) 0.0 Immature Gran # (Auto) 0.09 H Absolute Nucleated RBC 0.00 Immature Gran % 1 H Nucleated RBC % 0 Sodium 143 Potassium 4.0 D Chloride 108 H Carbon Dioxide 26.5 Anion Gap 9 BUN 10 Creatinine 0.6 Estim Creat Clear Calc 112.8 eGFR > 60 BUN/Creatinine Ratio 17 Glucose 88 Calculated Osmolality 282 Calcium 8.7 Corrected Calcium 9.0 Total Bilirubin 0.3 AST 20 ALT 8 L Alkaline Phosphatase 63 Total Protein 5.6 L Albumin 3.6 Globulin 2.0 L Albumin/Globulin Ratio 1.8 ABG Interpretation ABG results: 12/12/24 12/13/24 12/13/24 15:50 14:10 14:49 ABG pH 7.25 L 7.46 H D ABG pCO2 61 H 34 D ABG pO2 78 L 84 ABG HCO3 27 H 25 ABG O2 Saturation 95 98 ABG Base Excess -2 1 VBG pH 7.38 VBG pCO2 42 VBG pO2 48 VBG Base Excess 0 Assessment & Plan Additional Assessment & Plan Additional Plan: Riaz Lazo is 64 yr male with PMH of right breast cancer, 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 Patient admitted for further workup of acute encephalopathy. #Acute encephalopathy-significant improvement noted, close to baseline -Secondary to pneumonia with underlying baseline dementia endorses slow decline, oriented to self only, requires more assistance with ADLs recently. Is high fall risk, discontinued off Eliquis in September 2024. Chest x-ray noted bilateral pneumonia. CT head noted right mastoiditis and right otitis media likely chronic as the patient is not having any clinical symptoms, negative for hemorrhage or acute changes. MRI brain did not show any contrast-enhancing cerebral or cerebellar lesions. No acute intracranial abnormalities noted. - Continue with Mementine ? Follow-up with EEG. #History right breast cancer with metastasis #Hx of decubitus ulcers of L elbow and L heel #History of multiple falls #Syncope #Recent left humerus fracture #Sleep apnea: Using CPAP tonight Primary care team to manage above conditions and ongoing care needs.
[2024-12-17] VITALS: BP 138/82; PULSE 86; RESP 14; TEMP 36.8; O2SAT 100
[2024-12-17 04:00] VITALS: BP 137/87; PULSE 73; PULSE 84; RESP 13; TEMP 36.7; O2SAT 100
[2024-12-17] MEDS: AMPICILLIN/SULBAC INJ 3 GM in SODIUM CHLORIDE 0.9% (POP) 100 ML IV ×2 (05:05→11:42)
[2024-12-17 05:52] LABS: Basophils # (Auto) 0.0 Thou/mm3 (0.0-0.2); Basophils % (Auto) 0 % (0-2.5); Eosinophils # (Auto) 0.3 Thou/mm3 (0.0-0.5); Eosinophils % (Auto) 4 % (0-10); Hematocrit 31.7 % (41.0-53.0); Hemoglobin 10.6 g/dL (13.5-16.0); Immature Granulocytes Auto 0.08 Thou/mm3 (0.00-0.00); Lymphocytes # (Auto) 0.5 Thou/mm3 (1.0-4.8); Lymphocytes % (Auto) 6 % (10-50); Mean Corpuscular HGB Conc 33.4 g/dl (31.0-37.0); Mean Corpuscular Hemoglobin 32.3 pg (25.0-35.0); Mean Corpuscular Volume 97 fL (80-100); Monocytes # (Auto) 1.5 Thou/mm3 (0.0-0.8); Monocytes % (Auto) 18 % (0-12); Neutrophils # (Auto) 5.8 Thou/mm3 (1.8-7.7); Neutrophils % (Auto) 70 % (37-80); Nucleated Red Blood Cell # 0.00 Thou/mm3 (0.00-0.00); Nucleated Red Blood Cell % 0 /100 WBC (0); Platelet Count 216 Thou/mm3 (140-440); RDW Standard Deviation 59.5 fL (35.1-43.9); Red Blood Count 3.28 Miln/mm3 (4.50-5.90); White Blood Count 8.3 Thou/mm3 (3.8-10.6)
[2024-12-17 06:26] LABS: Anion Gap 11 (7-16); BUN/Creatinine Ratio 13 Ratio (12-20); Blood Urea Nitrogen 9 mg/dL (9-23); Calcium 8.7 mg/dL (8.3-10.6); Carbon Dioxide 27.6 mMol/L (20.0-31.0); Chloride 107 mMol/L (98-107); Creatinine (Component) 0.7 mg/dL (0.6-1.3); Estimated Creatinine Clearance 96.7 mL/min (>60); Glucose 89 mg/dL (74-106); Osmolality,Calculated 288 (275-295); Potassium 3.8 mMol/L (3.4-5.1); Sodium 146 mMol/L (136-145); eGFR > 60 See Note
[2024-12-17 07:44] VITALS: BP 146/87; PULSE 79; RESP 12; TEMP 36.6; O2SAT 97
[2024-12-17] MEDS: ZINC SULFATE 220 MG CAPSULE PO (08:30)
[2024-12-17] MEDS: MEMANTINE HCL 5 MG TABLET 10 MG PO (08:30)
[2024-12-17] MEDS: PANTOPRAZOLE 40 MG TABLET PO (08:31)
[2024-12-17] MEDS: MULTIVITAMINS TABLET 1 TAB PO (08:31)
[2024-12-17] MEDS: ASCORBIC ACID 250 MG TABLET 500 MG PO (08:31)
[2024-12-17 11:50] VITALS: BP 116/81; PULSE 85; RESP 13; TEMP 36.3; O2SAT 99
--- NOTE | 2024-12-17 12:17 | ESDS_ITS ---
<Statement entered by Lala Mead MD - 12/17/24 15:48> I discussed with and supervised the quality internship physician who took care of this patient. I personally saw and examined the patient and discussed the assessment and plan with the entire medicine team, including my attending , I agree with the assessment and plan as documented below Lala Mead M.D. PGY-3 Disclaimer: Despite multiple revisions, due to the dictation software being used, the document bellow may not be free of grammatical errors including phonetic/typographic errors. However, this does not deter from our commitment to providing health care in the patient's best interest in mind. Planned Discharge Date 12/17/24 DS: Providers Provider Date of admission: 12/12/24 16:22 Primary care physician: Physician Laura Primary/Family Admitting Provider: Fidencio Gonzales DO Attending Provider on Admission: Svetlana Guillaume MD Consults: 12/13/24 08:00 Referral Speech Therapy Routine Comment: Referral Wound Care Routine Comment: 12/13/24 11:21 Referral OP Wound Healing Dept Routine Comment: 12/13/24 15:58 Referral Discharge Planning Routine Comment: Instructions: Will need hospital bed with specialty pressure redistribution, low air loss surface with wedges for repositioning Referral Nutritional Services Routine Comment: Wounds 12/14/24 09:09 Referral Physical Therapy Routine Comment: Physician Instructions: 12/14/24 11:26 Consult to Infectious Diseases Stat Comment: Consulting Provider: Rj Wesley 12/14/24 11:28 Consult to Neurology / Tele-Neurology Routine Comment: Breast CA mets to brain, worsening encephalopathy Consulting Provider: Brian Beatty Attending Provider on DC: Meagan Medina MD Discharging Provider: Meagan Medina MD DS: Diagnosis Problem List Completed Was Problem List Reviewed/Reconciled?: Yes Hospital Course Hospital Course Hospital course: 64-year-old male with PHx of right breast cancer, with mets to spine and brain, multiple falls (latest in September, sustained left humerus fracture), hemorrhagic stroke, and sleep apnea on 2L nightly was admitted for acute encephalopathy secondary to mutifactorial causes. ED course: The patient presented to the ED with a heart rate of 117 bpm and oxygen saturation of 90% on a 4 L oxygen mask. Initial workup revealed an arterial blood gas (ABG) with respiratory acidosis (pH?7.25,pCO2?61), a normal white blood cell count, and a mildly high sodium level (147). Imaging was significant for bilateral pneumonia on chest x-ray and acute right mastoiditis and otitits media on CT head, which was otherwise negative for acute bleed. The patient's EKG showed sinus tachycardia. In the ED, they received a dose of azithromycin and ceftriaxone for presumed infection, along with 2 liters of LR bolus. Hospital course: The patient had no signs or symptoms of acute mastoiditis or otitis media. Patient did have significant bilat pneumonia for which unasyn was given and patient recieved a tot course of 6 days of abx. After which the patient's mental status improved from orientation of 0/3 to 3/3. Patient's acute encepahlopahty was though to be multifactorial, including underlying dementia, polypharmacy (stopped topamax and holding lyrica, diltiazem, benazepril), community acquired pneumonia. EEG ruled out seizures. At time of discharge patient is returning to baseline. Patient to follow-up with PCP in 1-[address] Beatty in 2 wks. Discharge instructions: Please stop taking Topamax as this can worsen your symptoms of altered mental status Take Vitamin C, Zinc, multivitamin and use Iodosorb for pressure ulcers and follow-up at the [facility] listed below Take Dronabinol 2.5mg capsule twice a day with meals to boost appetite Continue all other home medications as prescribed Hold Diltiazem, Benazepril and Midodrin untill you follow up with your PCP in 1- 2 weeks. Follow up with neurology in 1-2 weeks after discharge Please follow-up with your PCP within 1 week of discharge or follow-up at the [facility] [address] [place] [address] If your symptoms worsen or if you develop new chest pain, shortness of breath, severe weakness or loss of consciousness - please come back to the ED immediately. Admission diagnoses: #Acute encephalopathy 2/2 underlying dementia, polypharmacy, pneumonia #History right breast cancer with metastasis #History of multiple falls #History of syncope #History of recent left humerus fracture #History of Sleep apnea Case discussed with my attending Dr. Medina, and senior resident, Dr. Boston Wynne MD PGY-1 Status at Discharge Overall status at discharge: patient is progressing back to baseline Time Spent with Patient Time attestation: Total time spent providing and/or coordinating discharge services: 40 min Time spent: Greater than 30 minutes Exam Vital Signs Temp Pulse Resp BP Pulse Ox O2 Del Method O2 Flow Rate 97.4 F 85 13 116/81 99 Room Air 2 12/17/24 11:50 12/17/24 11:50 12/17/24 11:50 12/17/24 11:50 12/17/24 11:50 12/17/24 11:50 12/17/24 07:44 FiO2 35 12/16/24 20:47 Narrative Exam GEN: Awake. Lethargic. Saturating well on RA. Answering to some questions appropriately. HEENT: Normocephalic, atraumatic, mucous membranes dry. CVS: Regular rate and rhythm, normal S1 and S2, no murmurs. RESP: Decreased lung sounds bilaterally. No wheezes or crackles. GI: Soft, nondistended, nontender, positive bowel sounds. No guarding or rebound tenderness. NEURO: A&O x 3 today. Moving all 4 limbs. No focal neuro deficit. Skin: No rash. Decubitus ulcers on L elbow and Left heel. Discharge Plan Plan Patient Disposition: Home w/HOME HEALTH Health Concerns: Please stop taking Topamax as this can worsen your symptoms of altered mental status Take Vitamin C, Zinc, multivitamin and use Iodosorb for pressure ulcers and follow-up at the [facility] listed below Take Dronabinol 2.5mg capsule twice a day with meals to boost appetite Continue all other home medications as prescribed Hold Diltiazem, Benazepril and Midodrin untill you follow up with your PCP in 1- 2 weeks. Follow up with neurology in 1-2 weeks after discharge Please follow-up with your PCP within 1 week of discharge or follow-up at the [facility] [address] [place] [address] If your symptoms worsen or if you develop new chest pain, shortness of breath, severe weakness or loss of consciousness - please come back to the ED immediately. Care Plan Goals: 1) Follow up at [facility], [address] [place] [address]. Call [phone] for appointment. 2) Wound care to pressure injuries: -Wash hands with soap and water. -Remove old dressing and cleanse well with wound cleanser spray or normal saline and pat dry with gauze. -Wash hands again with soap and water. - Left elbow and sacrum(tailbone): fill wound bed with iodosorb gel and cover with layer of calicum algiante. Apply skin prep to wound edges and secure with foam dressing. Change once a day and as needed for falling off or soiling. -Right heel: swab with betadine/iodine and allow to dry than cover with foam dressing daily. If active bleeding occurs, apply tight dressing and return to MD or ER. ? Notify primary doctor or return to Emergency Room if any of the following: ? Fever above 100.6? F. ? Increased pain ? Increase swelling ? Red streaks around your wound ? Drainage becomes foul smelling or changes color ? The wound is larger or deeper ? The wound looks dried out or dark ? Bleeding that does not stop with holding pressure 3) Avoid sitting or laying in bed for extended periods of time. Reposition from side to side if laying in bed supported with wedges (one to lower back and second below the buttocks) every 2 hours. Reposition every 20-30 minutes if sitting upright in the chair. Prescriptions/Referrals Prescriptions/Med Rec: New ascorbic acid (vitamin C) [Vitamin C] 250 mg Tablet 250 mg PO BID 30 Days Qty: 60 0RF Iodosorb 0.9 % Gel 40 g top DAILY 30 Days Qty: 40 0RF dronabinol 2.5 mg Capsule 2.5 mg PO BIDAC 30 Days Qty: 60 0RF multivitamin with folic acid [Tab-A-Ermelinda] 400 mcg Tablet 1 tab PO QDAY 30 Days Qty: 30 0RF zinc sulfate 50 mg zinc (220 mg) Capsule 220 mg PO QDAY 12 Days Qty: 53 0RF Continued Cyclobenzaprine * (FLEXERIL *) 10 mg tablet 10 mg PO BID Qty: 0 Hydrocodone/Acetaminophen * (NORCO 10/325 *) 1 TAB tablet 1 tab PO Q4H PRN (Reason: pain) Qty: 0 Piqray 300 mg/day (150 mg x 2) tablet 300 mg PO QDAY memantine 10 mg tablet 10 mg PO BID ascorbic acid (vitamin C) 500 mg tablet 500 mg PO QDAY cholecalciferol (vitamin D3) [Vitamin D3] 125 mcg (5,000 unit) tablet 125 mcg PO QDAY famotidine 20 mg tablet 20 mg PO HS Patient Comments: take 1 tablet by mouth at bedtime ferrous sulfate 324 mg (65 mg iron) tablet,delayed release (DR/EC) 324 mg PO QDAY morphine 30 mg tablet extended release 30 mg PO HS Patient Comments: take 1 tablet by mouth every 12 hours One-A-Day Men's Multivitamin 400-20-300 mcg tablet 1 tab PO QDAY ondansetron 8 mg tablet,disintegrating 8 mg PO Q8H PRN (Reason: nausea and vomiting) Patient Comments: dissolve 1 tablet ON TONGUE every 8 hours if needed for nausea and vomiting polyethylene glycol 3350 [ClearLax] 17 gram/dose powder 17 g PO QDAY Held pregabalin [Lyrica] 25 mg capsule 100 mg PO BID Hold Instructions: Resume on 01/06/25. please follow up with neurology and PCP before restarting. Thank you Benazepril Hcl 10 mg tablet 10 mg PO QDAY Qty: 0 Hold Instructions: Resume on 12/31/24. follow up with PCP before restarting diltiazem HCl [DILT-XR] 120 mg capsule,ext.rel 24h degradable 120 mg PO QDAY Hold Instructions: Resume on 12/31/24. hold until you follow up with primary care physician in 1-2 weeks. midodrine 10 mg tablet 10 mg PO TID Hold Instructions: Resume on 01/07/25. follow up with PCP before restarting. Discontinued topiramate [Topamax] 50 MG tablet 25 mg PO Q12H Qty: 0 ondansetron 8 mg tablet,disintegrating 8 mg PO Q8H Rx Instructions: 1st dose 1-2 hr before radiation pantoprazole 40 mg tablet,delayed release (DR/EC) 40 mg PO QDAY Patient Comments: TAKE 1 TABLET BY MOUTH ONCE DAILY vitamin E 400 unit tablet 400 unit PO QDAY Referrals: No Primary/Family,Physician [Primary Care Provider] Brian Beatty MD [Physician, Neurology] Patient/Caregiver Discharge Instructions Other Discharge Activity Instructions:: Please stop taking Topamax as this can worsen your symptoms of altered mental status Take Vitamin C, Zinc, multivitamin and use Iodosorb for pressure ulcers and follow-up at the [facility] listed below Take Dronabinol 2.5mg capsule twice a day with meals to boost appetite Continue all other home medications as prescribed Hold Diltiazem, Benazepril and Midodrin untill you follow up with your PCP in 1- 2 weeks. Follow up with neurology in 1-2 weeks after discharge Please follow-up with your PCP within 1 week of discharge or follow-up at the [facility] [address] [place] [address] If your symptoms worsen or if you develop new chest pain, shortness of breath, severe weakness or loss of consciousness - please come back to the ED immediately. 1) Follow up at [facility], [address] [place] [address]. Call [phone] for appointment. 2) Wound care to pressure injuries: -Wash hands with soap and water. -Remove old dressing and cleanse well with wound cleanser spray or normal saline and pat dry with gauze. -Wash hands again with soap and water. - Left elbow and sacrum(tailbone): fill wound bed with iodosorb gel and cover with layer of calicum algiante. Apply skin prep to wound edges and secure with foam dressing. Change once a day and as needed for falling off or soiling. -Right heel: swab with betadine/iodine and allow to dry than cover with foam dressing daily. If active bleeding occurs, apply tight dressing and return to MD or ER. ? Notify primary doctor or return to Emergency Room if any of the following: ? Fever above 100.6? F. ? Increased pain ? Increase swelling ? Red streaks around your wound ? Drainage becomes foul smelling or changes color ? The wound is larger or deeper ? The wound looks dried out or dark ? Bleeding that does not stop with holding pressure 3) Avoid sitting or laying in bed for extended periods of time. Reposition from side to side if laying in bed supported with wedges (one to lower back and second below the buttocks) every 2 hours. Reposition every 20-30 minutes if sitting upright in the chair. Education Materials: Nutrition for Wound Healing, Preventing Pressure Sores, Pressure Injury Dc, Changing Dressing Dc Print Language: Liberian Stand Alone Forms: [employer] Award Info., Patient Portal Info Letter Discharge Order Discharge Orders: Discharge (Routine); Ordered 12/17/24 Ordered By: Lala Mead Quality Discharge Quality Measures VTE prophylaxis Attestestation MD Attestation I attest that I was physically present for the evaluation, physical examination, lab and imaging review of the patient with the residents. I discussed the case with the residents and agree with the findings and plans of care as documented above. Patient seen and examined at bedside this morning. Appears comfortable and denies any new complaints. Vital signs are stable.Lab results are stable as well. Discussed with neurology stated that patient's EEG findings were benign and patient is stable for discharge from neurology standpoint. We will discharge patient home with home health his home medications. We will hold his pregabalin, antihypertensives, midodrine and diltiazem until patient is evaluated by neurology/PCP. Recommended to follow-up with PCP and neurology in 1 to 2 weeks of discharge. Meagan Medina MD
[2024-12-17] MEDS: CADEXOMER IODINE GEL 40 GM TUBE TOP (12:35)
--- NOTE | 2024-12-17 13:29 | PC.NURSE ---
Called patients and notified her patient is ready for discharge. She will get here as soon as she can to sign papers.
--- NOTE | 2024-12-17 14:25 | PC.CC ---
Addendum entered by Rigoberto Vázquez RN 12/17/24 15:26: Ted accepted and booked, SOC 12/19 Original Note: [facility] ref sent out, waiting for responses
--- NOTE | 2024-12-18 07:20 | PC.CC ---
Signed DC summary sent to ALEIS[facility]
== END 2024-12-17 15:52 | disposition home health service (06) | DRG 193 ==
LOC: SERX 12:59 → SERHOLD 16:30 → S3SX 18:15
PROVIDERS: Student in an Organized Health Care Education/Training Program; Admitting Provider Student in an Organized Health Care Education/Training Program; Emergency Provider Family Medicine; Visit Provider Internal Medicine
DX: J18.9 Pneumonia, unspecified organism (principal); G93.41 Metabolic encephalopathy; H70.001 Acute mastoiditis without complications, right ear; C79.51 Secondary malignant neoplasm of bone; E46 Unspecified protein-calorie malnutrition; E87.0 Hyperosmolality and hypernatremia; E87.29 Other acidosis; E83.39 Other disorders of phosphorus metabolism; H66.91 Otitis media, unspecified, right ear; Z87.891 Personal history of nicotine dependence; G47.33 Obstructive sleep apnea (adult) (pediatric); Z90.81 Acquired absence of spleen; Z86.73 Personal history of transient ischemic attack (TIA), and cerebral infarction without residual deficits; R29.6 Repeated falls; F01.50 Vascular dementia, unspecified severity, without behavioral disturbance, psychotic disturbance, mood disturbance, and anxiety; N40.1 Benign prostatic hyperplasia with lower urinary tract symptoms; E87.6 Hypokalemia; Z92.21 Personal history of antineoplastic chemotherapy; Z92.3 Personal history of irradiation; Z85.3 Personal history of malignant neoplasm of breast; Z79.899 Other long term (current) drug therapy
CPT/HCPCS: 36415; 36600; 70450; 70553; 71045; 80048; 80053; 80069; 80307; 81001; 82140; 82607; 82746; 82803; 83540; 83550; 83605; 83615; 83690; 83735; 83880; 84100; 84145; 84295; 85025; 85610; 85730; 86331; 86635; 87040; 87081; 87502; 87811; 92610; 93005; 93225; 94660; 95816; 96361; 96365; 96375; 97162; 99285; A9577; J0295; J0456; J0696; J2270; J2470; J3475; J3480; J7050; J7070; J7120; Q0167; A9270

== ENCOUNTER → 2025-01-11 | Outpatient (CLI) | payer MEDICARE, SELFPAY | END | disposition home or self-care (01) | PROVIDERS: PCP Internal Medicine; Referring Provider Internal Medicine; Visit Provider Student in an Organized Health Care Education/Training Program | DX: L89.024 Pressure ulcer of left elbow, stage 4 (principal); L89.622 Pressure ulcer of left heel, stage 2; L89.103 Pressure ulcer of unspecified part of back, stage 3; L89.150 Pressure ulcer of sacral region, unstageable; S90.421A Blister (nonthermal), right great toe, initial encounter; X58.XXXA Exposure to other specified factors, initial encounter; I10 Essential (primary) hypertension; C50.921 Malignant neoplasm of unspecified site of right male breast; C79.31 Secondary malignant neoplasm of brain; C79.51 Secondary malignant neoplasm of bone; Z91.81 History of falling; Z86.73 Personal history of transient ischemic attack (TIA), and cerebral infarction without residual deficits | CPT/HCPCS: 97597; 11042; 99213; A9270; G0463 ==

== ENCOUNTER → 2025-01-18 | Outpatient (CLI) | payer MEDICARE, SELFPAY | END | disposition home or self-care (01) | LOC: SWHD 10:29 | PROVIDERS: PCP Internal Medicine; Referring Provider Internal Medicine; Visit Provider Student in an Organized Health Care Education/Training Program | DX: L89.024 Pressure ulcer of left elbow, stage 4 (principal); L89.622 Pressure ulcer of left heel, stage 2; L89.104 Pressure ulcer of unspecified part of back, stage 4; S90.421A Blister (nonthermal), right great toe, initial encounter; X58.XXXA Exposure to other specified factors, initial encounter; I10 Essential (primary) hypertension; C50.921 Malignant neoplasm of unspecified site of right male breast; C79.51 Secondary malignant neoplasm of bone; C79.31 Secondary malignant neoplasm of brain; Z91.81 History of falling; Z86.73 Personal history of transient ischemic attack (TIA), and cerebral infarction without residual deficits | CPT/HCPCS: 11042; A9270 ==

== ENCOUNTER → 2025-01-25 | Outpatient (CLI) | payer MEDICARE, SELFPAY | END | disposition home or self-care (01) | LOC: SWHD 13:30 | PROVIDERS: PCP Internal Medicine; Referring Provider Internal Medicine; Visit Provider Student in an Organized Health Care Education/Training Program | DX: L89.024 Pressure ulcer of left elbow, stage 4 (principal); L89.622 Pressure ulcer of left heel, stage 2; L89.103 Pressure ulcer of unspecified part of back, stage 3; L89.150 Pressure ulcer of sacral region, unstageable; S90.421A Blister (nonthermal), right great toe, initial encounter; X58.XXXA Exposure to other specified factors, initial encounter; I10 Essential (primary) hypertension; C50.921 Malignant neoplasm of unspecified site of right male breast; C79.31 Secondary malignant neoplasm of brain; C79.51 Secondary malignant neoplasm of bone; Z91.81 History of falling; Z86.73 Personal history of transient ischemic attack (TIA), and cerebral infarction without residual deficits | CPT/HCPCS: 11042; 97597; A9270 ==

== ENCOUNTER → 2025-01-25 | Outpatient (CLI) | payer BC, SELFPAY ==
--- NOTE | 2025-01-25 16:00 | XR_ITS ---
Examination: Left elbow 3 views Technique: Elbow AP, oblique, lateral 3 views Exam date and time: January 25, 2025, 1627 hours INDICATIONS: Left elbow pain beginning 2 weeks ago. FINDINGS: Mild elbow osteoarthritis. No elbow fracture or dislocation. Small knee effusion IMPRESSION: Mild elbow osteoarthritis.
== END | disposition home or self-care (01) ==
PROVIDERS: PCP Internal Medicine; Referring Provider Student in an Organized Health Care Education/Training Program; Visit Provider Student in an Organized Health Care Education/Training Program
DX: M19.022 Primary osteoarthritis, left elbow (principal)
CPT/HCPCS: 73080

== ENCOUNTER → 2025-02-01 | Outpatient (CLI) | payer MEDICARE, SELFPAY | END | disposition home or self-care (01) | LOC: SWHD 13:24 | PROVIDERS: PCP Internal Medicine; Referring Provider Internal Medicine; Visit Provider Student in an Organized Health Care Education/Training Program | DX: L89.024 Pressure ulcer of left elbow, stage 4 (principal); L89.622 Pressure ulcer of left heel, stage 2; L89.103 Pressure ulcer of unspecified part of back, stage 3; S90.421A Blister (nonthermal), right great toe, initial encounter; X58.XXXA Exposure to other specified factors, initial encounter; I10 Essential (primary) hypertension; C50.921 Malignant neoplasm of unspecified site of right male breast; C79.31 Secondary malignant neoplasm of brain; C79.51 Secondary malignant neoplasm of bone; Z91.81 History of falling; Z86.73 Personal history of transient ischemic attack (TIA), and cerebral infarction without residual deficits | CPT/HCPCS: 97597; A9270 ==

== ENCOUNTER → 2025-02-07 | Outpatient (CLI) | payer MEDICARE, SELFPAY | END | disposition home or self-care (01) | LOC: SWHD 13:39 | PROVIDERS: PCP Internal Medicine; Referring Provider Internal Medicine; Visit Provider Student in an Organized Health Care Education/Training Program | DX: L89.024 Pressure ulcer of left elbow, stage 4 (principal); L89.622 Pressure ulcer of left heel, stage 2; L89.103 Pressure ulcer of unspecified part of back, stage 3; L89.150 Pressure ulcer of sacral region, unstageable; S90.421A Blister (nonthermal), right great toe, initial encounter; X58.XXXA Exposure to other specified factors, initial encounter; I10 Essential (primary) hypertension; C50.921 Malignant neoplasm of unspecified site of right male breast; C79.31 Secondary malignant neoplasm of brain; C79.51 Secondary malignant neoplasm of bone; Z91.81 History of falling; Z86.73 Personal history of transient ischemic attack (TIA), and cerebral infarction without residual deficits | CPT/HCPCS: 97597 ==

== ENCOUNTER → 2025-02-12 | Outpatient (CLI) | payer MEDICARE, SELFPAY | END | disposition home or self-care (01) | PROVIDERS: PCP Internal Medicine; Referring Provider Internal Medicine; Visit Provider Student in an Organized Health Care Education/Training Program | DX: L89.024 Pressure ulcer of left elbow, stage 4 (principal); L89.622 Pressure ulcer of left heel, stage 2; S90.421A Blister (nonthermal), right great toe, initial encounter; X58.XXXA Exposure to other specified factors, initial encounter; I10 Essential (primary) hypertension; C50.921 Malignant neoplasm of unspecified site of right male breast; C79.31 Secondary malignant neoplasm of brain; C79.51 Secondary malignant neoplasm of bone; Z91.81 History of falling; Z86.73 Personal history of transient ischemic attack (TIA), and cerebral infarction without residual deficits | CPT/HCPCS: 11042 ==

== ENCOUNTER → 2025-02-15 | Outpatient (CLI) | payer MEDICARE, SELFPAY | END | disposition home or self-care (01) | LOC: SWHD 14:24 | PROVIDERS: PCP Internal Medicine; Referring Provider Internal Medicine; Visit Provider Student in an Organized Health Care Education/Training Program | DX: L89.024 Pressure ulcer of left elbow, stage 4 (principal); L89.622 Pressure ulcer of left heel, stage 2; L89.104 Pressure ulcer of unspecified part of back, stage 4; S90.421A Blister (nonthermal), right great toe, initial encounter; X58.XXXA Exposure to other specified factors, initial encounter; I10 Essential (primary) hypertension; C50.921 Malignant neoplasm of unspecified site of right male breast; C79.31 Secondary malignant neoplasm of brain; C79.51 Secondary malignant neoplasm of bone; Z91.81 History of falling; Z86.73 Personal history of transient ischemic attack (TIA), and cerebral infarction without residual deficits | CPT/HCPCS: 97597; 11043; 11042; A9270 ==

== ENCOUNTER → 2025-02-22 | Outpatient (CLI) | payer MEDICARE, SELFPAY | END | disposition home or self-care (01) | LOC: SWHD 15:09 | PROVIDERS: PCP Internal Medicine; Referring Provider Internal Medicine; Visit Provider Student in an Organized Health Care Education/Training Program | DX: L89.024 Pressure ulcer of left elbow, stage 4 (principal); L89.622 Pressure ulcer of left heel, stage 2; S90.421A Blister (nonthermal), right great toe, initial encounter; X58.XXXA Exposure to other specified factors, initial encounter; I10 Essential (primary) hypertension; C79.31 Secondary malignant neoplasm of brain; C79.51 Secondary malignant neoplasm of bone; Z91.81 History of falling; Z86.73 Personal history of transient ischemic attack (TIA), and cerebral infarction without residual deficits | CPT/HCPCS: 11042; 97597; A9270 ==

== ENCOUNTER → 2025-03-01 | Outpatient (CLI) | payer MEDICARE, SELFPAY | END | disposition home or self-care (01) | LOC: SWHD 14:52 | PROVIDERS: PCP Internal Medicine; Referring Provider Internal Medicine; Visit Provider Surgery | DX: L89.024 Pressure ulcer of left elbow, stage 4 (principal); L89.622 Pressure ulcer of left heel, stage 2; L89.104 Pressure ulcer of unspecified part of back, stage 4; S90.421A Blister (nonthermal), right great toe, initial encounter; X58.XXXA Exposure to other specified factors, initial encounter; I10 Essential (primary) hypertension; C50.921 Malignant neoplasm of unspecified site of right male breast; C79.31 Secondary malignant neoplasm of brain; C79.51 Secondary malignant neoplasm of bone; Z91.81 History of falling; Z86.73 Personal history of transient ischemic attack (TIA), and cerebral infarction without residual deficits | CPT/HCPCS: 11042; 97597; A9270 ==

== ENCOUNTER → 2025-03-02 | Outpatient (CLI) | payer MEDICARE, SELFPAY | END | disposition home or self-care (01) | LOC: SLDO 14:25 | PROVIDERS: Referring Provider Surgery; Visit Provider Surgery | DX: M71.022 Abscess of bursa, left elbow (principal) | CPT/HCPCS: 87070; 87075; 87077; 87186; 87205 ==

== ENCOUNTER → 2025-03-09 | Outpatient (CLI) | payer MEDICARE, SELFPAY | END | disposition home or self-care (01) | LOC: SWHD 15:31 | PROVIDERS: PCP Internal Medicine; Referring Provider Internal Medicine; Visit Provider Surgery | DX: L89.024 Pressure ulcer of left elbow, stage 4 (principal); L89.622 Pressure ulcer of left heel, stage 2; S90.421A Blister (nonthermal), right great toe, initial encounter; X58.XXXA Exposure to other specified factors, initial encounter; I10 Essential (primary) hypertension; C50.921 Malignant neoplasm of unspecified site of right male breast; C79.31 Secondary malignant neoplasm of brain; C79.51 Secondary malignant neoplasm of bone; Z91.81 History of falling; Z86.73 Personal history of transient ischemic attack (TIA), and cerebral infarction without residual deficits | CPT/HCPCS: 11042; A9270 ==

== ENCOUNTER → 2025-03-13 | Outpatient (CLI) | payer MEDICARE, SELFPAY | END | disposition home or self-care (01) | LOC: SWHD 14:41 | PROVIDERS: PCP Internal Medicine; Referring Provider Internal Medicine; Visit Provider Student in an Organized Health Care Education/Training Program | DX: L89.024 Pressure ulcer of left elbow, stage 4 (principal); L89.622 Pressure ulcer of left heel, stage 2; S90.421A Blister (nonthermal), right great toe, initial encounter; X58.XXXA Exposure to other specified factors, initial encounter; I10 Essential (primary) hypertension; C50.921 Malignant neoplasm of unspecified site of right male breast; C79.31 Secondary malignant neoplasm of brain; C79.51 Secondary malignant neoplasm of bone; Z91.81 History of falling; Z86.73 Personal history of transient ischemic attack (TIA), and cerebral infarction without residual deficits | CPT/HCPCS: 11042; 97597; A9270 ==